=== PATIENT | female | born 1980 | race Caucasian/White ===

== ENCOUNTER 2021-08-20 18:00 | Inpatient (IN) | payer MEDICAID, SELFPAY ==
[2021-08-20] VITALS (10 sets, daily range): BP systolic 103–127; BP diastolic 76–98; PULSE 46–73; RESP 8–16; TEMP 36.3–36.6; O2SAT 91–99; BMI 27.9; BMI 28.2
--- NOTE | 2021-08-20 18:08 | EKG12_ITS ---
Test Reason : UNRSPONSIVE Blood Pressure : / mmHG Vent. Rate : 070 BPM Atrial Rate : 070 BPM P-R Int : 164 ms QRS Dur : 114 ms QT Int : 410 ms P-R-T Axes : 021 074 026 degrees QTc Int : 442 ms Normal sinus rhythm Low voltage QRS Borderline ECG Confirmed by NEDRA MARIE, TANA ([id number]), science editor JOSE LEE ([id number]) on 08/22/2021 8:25:38 AM Referred By: Confirmed By:TANA SNEED MD
--- NOTE | 2021-08-20 18:18 | RAD_ITS ---
STUDY: X-RAY CHEST REASON FOR EXAM: Female, 41 years old. CHEST PAIN Myxedema coma, history of pericardial effusion TECHNIQUE: XR Chest 1 View COMPARISON: None FINDINGS: There is no demonstrated pleural abnormality. There is bilateral infiltrate. Normal size heart. Normal mediastinum and payal. Normal visualized pulmonary arteries. Normal visualized aortic arch and descending thoracic aorta. Normal visualized thoracic spine. Normal visualized ribs, clavicles, and shoulders. There is no demonstrated abnormality of the visualized soft tissue structures of the upper abdomen. RAD/Chest 1 View (Portable) IMPRESSION: There is bilateral infiltrate. Electronically Signed: Matthew Fitzgerald MD at 18:29 EST , Service support ,
--- NOTE | 2021-08-20 18:21 | EX.ED.DYSGE1 ---
HPI History of Present Illness Chief Complaint: Alt LOC Detail of Chief Complaint: Suspected myxedema coma/crisis Informant: EMS Limited: coma Onset/Context/Timing Onset: - (Unknown) Context: Gradual Onset (Suspected since she received a letter that was dated August 12 that her TSH for recent admission to [facility] was 80 and she had a pericardial effusion. She was admitted for constipation and RSV.) Timing: Continuous Current Severity: Severe Maximum Severity: Severe Worsened by: Untreated hypothyroidism Relieved by: Nothing Associated Symptoms Associated Symptoms: Unable to obtain Narrative Narrative: Is a 41-year-old woman who was recently seen at [facility] and had diagnosis of RSV. She was admitted for constipation and fatigue. She received a letter that was dated August 12 for elevated TSH of 80 and pericardial effusion. Presently she is unable to participate in her history or physical examination. Prior similar symptoms: Yes Recent Illness/Hospitalization: Yes PFSH PFSH Medical History unable to obtain unable to obtain Family History unable to obtain unable to obtain Surgical History unable to obtain unable to obtain Social History Smoking Status: Unknown if ever smoked ROS ROS ED Review of Systems ROS Unobtainable: due to encephalopathy EXAM Physical Exam Const Vital Signs: 08/20/21 18:01 08/20/21 19:23 Temperature 97.9 F Temperature Source Temporal Pulse Rate 46 L 71 Respiratory Rate 16 14 Blood Pressure 127/98 H 111/85 H Blood Pressure Mean 107 93 Pulse Ox 97 93 Oxygen Delivery Method Room Air Room Air Positive well nourished, well developed and obese General Appearance ED: well developed and NAD; Negative for cyanotic or diaphoretic Nutritional Appearance: obese HEENT HEENT Narrative: Head is atraumatic normocephalic. Ears normal. Nares patent. Mucosa moist. Eyes PERRL General Eye ED: Negative for pale conjunctiva or scleral icterus Neck no lymphadenopathy, supple and no JVD Chest Wall inspection of chest normal Resp normal respiratory effort and clear to auscultation bilaterally Cardio regular rhythm, S1 normal heart sound, S2 normal heart sound and no murmurs Rate: bradycardia GI normal to inspection, nondistended, normoactive bowel sounds and non-tender Auscultation: hypoactive bowel sounds Palpation: soft Neuro No oriented x3 Neuro Narrative: Patient has delayed relaxation phase of the ankle reflex consistent with hypothyroidism. Sensorium / Orientation: Negative for alert Psych Negative for mental status grossly normal Skin no rashes or lesions noted and no wounds General Skin Exam: Negative for jaundice MDM MDM MDM Narrative Medical decision making narrative: Based on elevated TSH 2 weeks ago and patient's present condition patient has myxedema coma/crisis. She was treated with IV L-thyroxine. Because there is a concern for adrenal insufficiency a cortisol level was obtained and she received 10 mg of Decadron IV push and would not interfere with stim test if indicated. The marine pipefitter helper Dr. Patel Colmenares was made aware of the patient. He agrees with ICU admission. Lab Data Attestation: I reviewed the patient's lab results. Lab results narrative: CBC is remarkable for anemia with an H&H of 9.2 and 29.5.. Coags are unremarkable. Comprehensive metabolic panel is remarkable for slight hyponatremia and hyperchloremia and hypo-Mando C. Nani, (135, 97 and 3.4 respectively). TSH is greater than 100 Cortisol is normal. She will not require repeat doses of Decadron. Hospitalist was paged for admission to ICU Records from [facility] were asked for. They have not been received. Labs: Laboratory Results - last 24 hr 08/20/21 08/20/21 08/20/21 18:05 18:05 18:05 WBC 7.9 RBC 3.63 L Hgb 9.2 L Hct 29.5 L MCV 81.3 MCH 25.3 L MCHC 31.2 L RDW Std Deviation 55.8 H RDW Coeff of Mary Alice 19.2 H Plt Count 277 MPV 9.0 Immature Gran % (Auto) 0.600 Neut % (Auto) 67.9 Lymph % (Auto) 19.1 Emanuel % (Auto) 6.2 Eos % (Auto) 4.9 Baso % (Auto) 1.3 H Absolute Neuts (auto) 5.4 Absolute Lymphs (auto) 1.51 Nucleated RBC % 0 PT 13.2 INR 1.1 APTT 41.6 H Sodium Potassium Chloride Carbon Dioxide Anion Gap BUN Creatinine Estim Creat Clear Calc Est GFR (MDRD) Af Amer Est GFR (MDRD) Non-Af BUN/Creatinine Ratio Glucose Lactic Acid Calcium Total Bilirubin AST ALT Alkaline Phosphatase Total Protein Albumin Globulin Albumin/Globulin Ratio TSH Serum , Qual Cortisol 8.40 08/20/21 08/20/21 08/20/21 18:05 18:05 18:52 WBC RBC Hgb Hct MCV MCH MCHC RDW Std Deviation RDW Coeff of Mary Alice Plt Count MPV Immature Gran % (Auto) Neut % (Auto) Lymph % (Auto) Emanuel % (Auto) Eos % (Auto) Baso % (Auto) Absolute Neuts (auto) Absolute Lymphs (auto) Nucleated RBC % PT INR APTT Sodium 135 L Potassium 3.4 L Chloride 97 L Carbon Dioxide 32.0 Anion Gap 6 BUN 14 Creatinine 0.92 Estim Creat Clear Calc 82.00 Est GFR (MDRD) Af Amer 87 Est GFR (MDRD) Non-Af 72 BUN/Creatinine Ratio 15.3 Glucose 87 Lactic Acid 1.2 Calcium 9.7 Total Bilirubin 0.30 AST 55 H ALT 40 Alkaline Phosphatase 46 Total Protein 8.6 H Albumin 3.8 Globulin 4.8 H Albumin/Globulin Ratio 0.8 L TSH > 100.00 H Serum , Qual NEGATIVE Cortisol Radiography Chest X-Ray - ED: 1 View, Read by ED Physician (Patient heart is enlarged. Cardiac silhouette appears normal. Patient has poor inspiratory volume due to poor respiratory effort. She does not have infiltrates. She has poor inspiratory effort and reason radiologist has interpreted as infiltrate.) and Mediastinum Diagnostic Testing: Clinical Impression(s) from Imaging Studies Chest X-Ray 08/20/21 18:18 IMPRESSION: There is bilateral infiltrate. Electronically Signed: Matthew Fitzgerald MD at 18:29 EST , Service support , EKG Initial EKG: Attestation: I personally reviewed and interpreted this EKG as follows: Interpretation: Sinus Rhythm (EKG reveals a normal sinus rhythm with ventricular rate of 70. NM interval is 164 ms. QRS duration 114 ms. QT duration 4 to 10 ms. [place] is normal. There is low voltage and consistent with large pleural cardial effusion noted on echo) Procedures Other Procedures Procedure(s): Transthoracic ultrasound reveals a large pericardial effusion. There is no evidence of tamponade. There is evidence of good contractility of the right and left ventricle. There is no collapse of the right atrium. Critical Care Time Critical Care Time: Yes Critical care time (excluding procedures): 30-74 minutes (37 minutes), Including time spent: (History, physical, documentation, interpretation laboratory results, initiation of treatment for myxedema coma, bedside transthoracic echo), Discussing w/Consultants, Arranging Admission or Transfer and Performing Direct Patient Care at Bedside Discharge Plan Dx/Rx/DC Orders Clinical Impression: Myxedema coma, Pericardial effusion Disposition Disposition: Acute Care Hospital [facility]
[2021-08-20 18:29] LABS: Absolute Lymphocyte Count 1.51 X10^3/uL (0.83-4.51); Absolute Neutrophil Count 5.4 X10^3/uL (2.0-7.7); Basophil% 1.3 % (0-1); Eosinophil# 0.39 X10^3/uL; Eosinophils% 4.9 % (0-5); Hematocrit 29.5 % (37-47); Hemoglobin 9.2 g/dL (12.0-15.0); Lymphocyte # 1.51 X10^3/ul (0.83-4.51); Lymphocyte % 19.1 % (19-41); Mean Corp Hgb Conc 31.2 g/dL (32-36); Mean Corpuscular Hgb 25.3 pg (27.0-32.0); Mean Corpuscular Volume 81.3 fL (81-99); Monocyte# 0.49 X10^3/uL; Monocyte% 6.2 % (0-10); NRBC Flagged by Analyzer 0 % (0-5); Neutrophil # 5.38 X10^3/uL (2.7-7.7); Neutrophil % 67.9 % (47-70); Platelet Count 277 K/mm3 (150-450); RBC Distribution Width CV 19.2 % (11.6-14.6); RBC Distribution Width SD 55.8 fl (35.1-43.9); Red Blood Count 3.63 M/mm3 (4.2-5.4); White Blood Count 7.9 K/mm3 (4.4-11.0)
[2021-08-20] MEDS: 0.9% Normal Saline 1,000 ML 150 ML IV (18:30)
[2021-08-20 18:37] LABS: International Normalized Ratio 1.1; Prothrombin Time (Protime)PT. 13.2 SECONDS (11.7-14.9)
[2021-08-20 18:38] LABS: Partial Thromboplast Time 41.6 Seconds (24.1-36.2)
[2021-08-20] MEDS: dexAMETHasone 10 MG/ML Vial IV (18:38)
[2021-08-20 18:57] LABS: ALB/GLOB Ratio 0.8 RATIO (0.9-2.4); AST(SGOT) 55 U/L (15-37); Alanine Aminotransfer ALT/SGPT 40 U/L (13-56); Albumin, Serum 3.8 g/dL (3.2-5.0); Alkaline Phosphatase 46 U/L (45-117); Anion Gap 6 (5-15); BUN 14 mg/dL (7-18); BUN/Creat Ratio 15.3 RATIO (10-20); Calcium,Total 9.7 mg/dL (8.5-10.1); Chloride 97 mmol/L (98-107); Creatinine, Serum 0.92 mg/dL (0.55-1.02); EST Glomerular Filtration Rate 72 mL/min (>60); Est Glom Filt Rate - Afr Amer 87 mL/min (>60); Globulin 4.8 g/dL (2.2-4.2); Glucose 87 mg/dL (74-106); Potassium 3.4 mmol/L (3.5-5.1); Protein, Total 8.6 g/dL (6.4-8.2); Sodium Level 135 mmol/L (136-145)
[2021-08-20 18:58] LABS: Thyroid Stim Hormone (TSH) > 100.00 uIU/mL (0.358-3.74)
[2021-08-20 19:14] LABS: Internal QC Validated? YES +Cl - CLEAR BKGD; Pregnancy, Serum, hCG Quali. NEGATIVE Negative
[2021-08-20 19:34] LABS: Lactic Acid 1.2 mmol/L (0.4-1.9)
--- NOTE | 2021-08-20 20:21 | HP.PCM.HOS_ITS ---
HPI - General General Date of Admission: 08/20/21 HPI Narrative DAMIAN FRANKLIN, is a 41 F with unknown history was brought to ER by EMS from home. As per triage note patient has been in and out of consciousness. She was getting treated for constipation, pleural effusion and had recent admission for RSV in [facility]. There was a letter from Doctor Dated August 12, 2021 which showed that her TSH was high 80, found after discharge for which she was called and left voice message but did not reply or seek medical help. As per ED squad, patient was found seated on the toilet and was being held by her friend. She was very lethargic. EMS EKG shows sinus rhythm at 79 bpm, QTC 433 ms. GCS recorded was 12. In ER, EKG shows low voltage QRS complexes at 70 beats per. QTc 442 ms. EMS vitals blood sugar 94, BP 92/57, heart rate 76, respiratory 12/min, pulse ox 95% on 2 L of oxygen [facility] Medical History unable to obtain unable to obtain Home Medications Unobtainable 08/20/21 [History Last Taken Unknown] Allergy/AdvReac Type Severity Reaction Status Date / Time hydromorphone [From Dilaudid] Allergy Upset Verified 08/20/21 22:05 Stomach Family History unable to obtain unable to obtain Surgical History Tubal ligation status Surgical History unable to obtain Social History Smoking Status: Unknown if ever smoked ROS ROS Narrative Twelve system ROS unobtainable as patient has altered mental status, confusion, hardly open eyes. Review of Systems ROS Unobtainable: due to mental condition and due to mental status Vital Signs Vital Signs Vital Signs: 08/20/21 18:01 08/20/21 19:23 Temperature 97.9 F Temperature Source Temporal Pulse Rate 46 L 71 Respiratory Rate 16 14 Blood Pressure 127/98 H 111/85 H Blood Pressure Mean 107 93 Pulse Ox 97 93 Oxygen Delivery Method Room Air Room Air Weight Weight: 183 lb 13.848 oz Body Mass Index (BMI) 27.9 Physical Exam Narrative General: Unconscious, unresponsive HEENT: Atraumatic, PERRLA, EOMI, Normocephalic Oral: No Gingival or Mucosal Lesions/ Ulcerations Neck: No eschar marked for thyroid surgery in the neck supple, No JVD, Negative Carotid Bruits Lungs: Air entry diminished in bilateral lung bases. No crepitation/rhonchi Cardiovascular: Regular rate, Regular Rhythm, Normal S1, Normal S2, No murmurs Abdomen: Bowel Sounds sluggish, Soft, Non Tender, Non-Distended : No renal angle tenderness. No suprapubic tenderness. Extremities: No edema, Capillary Refill Less than 3 Seconds Skin: No rashes, No breakdown Musculoskeletal: No Tenderness to Palpation of Joints or Extremities Neurological: GCS 8, eye-opening to pain, incomprehensible sounds, withdrawal from pain. Psych/Mental Status: Unconscious, Results Lab / Micro Data Result Diagrams: 08/20/21 18:05 08/20/21 18:05 Labs: Laboratory Results - last 24 hr 08/20/21 18:05: Cortisol 8.40 08/20/21 18:05: WBC 7.9, RBC 3.63 L, Hgb 9.2 L, Hct 29.5 L, MCV 81.3, MCH 25.3 L , MCHC 31.2 L, RDW Std Deviation 55.8 H, RDW Coeff of Mary Alice 19.2 H, Plt Count 277, MPV 9.0, Immature Gran % (Auto) 0.600, Neut % (Auto) 67.9, Lymph % (Auto) 19.1, Cottle % (Auto) 6.2, Eos % (Auto) 4.9, Baso % (Auto) 1.3 H, Absolute Neuts (auto) 5.4, Absolute Lymphs (auto) 1.51, Nucleated RBC % 0 08/20/21 18:05: PT 13.2, INR 1.1, APTT 41.6 H 08/20/21 18:05: Sodium 135 L, Potassium 3.4 L, Chloride 97 L, Carbon Dioxide 32.0, Anion Gap 6, BUN 14, Creatinine 0.92, Estim Creat Clear Calc 82.00, Est GFR (MDRD) Af Amer 87, Est GFR (MDRD) Non-Af 72, BUN/Creatinine Ratio 15.3, Glucose 87, Calcium 9.7, Total Bilirubin 0.30, AST 55 H, ALT 40, Alkaline Phosphatase 46, Total Protein 8.6 H, Albumin 3.8, Globulin 4.8 H, Albumin/Globulin Ratio 0.8 L, TSH > 100.00 H 08/20/21 18:05: Serum , Qual NEGATIVE 08/20/21 18:52: Lactic Acid 1.2 Radiology Impression Chest X-Ray 08/20/21 18:18 IMPRESSION: There is bilateral infiltrate. Electronically Signed: Matthew Fitzgerald MD at 18:29 EST , Service support , Assessment & Plan Assessment/Plan (1) Myxedema coma: PLAN: 1. Myxedema coma, etiology unclear probably undiagnosed hypothyroidism for long time: ER physician discussed with time study technician Dr. Colmenares. TSH is more than one hundred. Serum cortisol level 8.4. Patient received 10 mg IV dexamethasone and 300 mcg levothyroxine IV in ED. Patient on IV fluid normal saline. Patient is being admitted in ICU. Repeat TSH, free T4 and free T3 tomorrow a.m. Levothyroxine 100 mcg IV daily along with hydrocortisone 100 mg IV every 8 hourly. Continue IV fluid normal saline. CK ordered. 2D echo ordered for tomorrow a.m. 2. Severe constipation: Chest x-ray shows nonspecific gas shadow in large bowel. Abdominal x-ray ordered for tomorrow a.m. Dulcolax suppository 10 mg daily. 3. Recent hospitalization for RSV, pleural effusion, constipation and fatigue: Details unavailable. We'll try to obtain medical record from [facility]. DVT prophylaxis: Moderate to high risk: Lovenox 40 mg subcu daily. Patient is not awake, alert, unresponsive to discuss about advanced directive. Full code unverified. Laboratory Results 08/20/21 18:05: Cortisol 8.40 08/20/21 18:05: WBC 7.9, RBC 3.63 L, Hgb 9.2 L, Hct 29.5 L, MCV 81.3, MCH 25.3 L , MCHC 31.2 L, RDW Std Deviation 55.8 H, RDW Coeff of Mary Alice 19.2 H, Plt Count 277, MPV 9.0, Immature Gran % (Auto) 0.600, Neut % (Auto) 67.9, Lymph % (Auto) 19.1, Cottle % (Auto) 6.2, Eos % (Auto) 4.9, Baso % (Auto) 1.3 H, Absolute Neuts (auto) 5.4, Absolute Lymphs (auto) 1.51, Nucleated RBC % 0 08/20/21 18:05: PT 13.2, INR 1.1, APTT 41.6 H 08/20/21 18:05: Sodium 135 L, Potassium 3.4 L, Chloride 97 L, Carbon Dioxide 32.0, Anion Gap 6, BUN 14, Creatinine 0.92, Estim Creat Clear Calc 82.00, Est GFR (MDRD) Af Amer 87, Est GFR (MDRD) Non-Af 72, BUN/Creatinine Ratio 15.3, G lucose 87, Calcium 9.7, Total Bilirubin 0.30, AST 55 H, ALT 40, Alkaline Ph osphatase 46, Total Protein 8.6 H, Albumin 3.8, Globulin 4.8 H, Albumin/Globulin Ratio 0.8 L, TSH > 100.00 H 08/20/21 18:05: Serum , Qual NEGATIVE 08/20/21 18:05: Phosphorus 3.4, Magnesium 2.4 08/20/21 18:52: Lactic Acid 1.2 Clinical Impression(s) from Imaging Studies Chest X-Ray 08/20/21 18:18 IMPRESSION: There is bilateral infiltrate. Electronically Signed: Matthew Fitzgerald MD at 18:29 EST , Service support , Charges/Coding Visit Charges Inpatient E&M: 55195 Init Hosp L3
[2021-08-20 20:42] LABS: Magnesium 2.4 mg/dL (1.6-2.6); Phosphorus 3.4 mg/dL (2.5-4.9)
[2021-08-20] MEDS: Hydrocortisone Sod Succinate 100 MG/2 ML Vial IV (23:47)
[2021-08-20] MEDS: Enoxaparin 40 MG/0.4 ML Syringe SC (23:47)
[2021-08-21] VITALS (24 sets, daily range): BP systolic 94–121; BP diastolic 52–87; PULSE 58–90; RESP 9–18; TEMP 36.4–36.7; O2SAT 90–98
[2021-08-21 01:31] LABS: CPK Total, Creatine Kinase 1630 U/L (26-192)
[2021-08-21] MEDS: Potassium Chloride 10mEq/100mL 10 MEQ/100 ML IV.SOLN. 100 MEQ IV BOLUS ×2 (03:27→05:07)
[2021-08-21 03:45] LABS: Absolute Lymphocyte Count 0.54 X10^3/uL (0.83-4.51); Absolute Neutrophil Count 7.2 X10^3/uL (2.0-7.7); Basophil# 0.05 X10^3/uL; Basophil% 0.6 % (0-1); Eosinophil# 0.01 X10^3/uL; Eosinophils% 0.1 % (0-5); Hematocrit 29.2 % (37-47); Hemoglobin 9.2 g/dL (12.0-15.0); Lymphocyte # 0.54 X10^3/ul (0.83-4.51); Lymphocyte % 6.8 % (19-41); Mean Corp Hgb Conc 31.5 g/dL (32-36); Mean Corpuscular Volume 82.5 fL (81-99); Mean Platelet Vol. 9.8 fl (6.2-12.0); Monocyte# 0.08 X10^3/uL; NRBC Flagged by Analyzer 0 % (0-5); Neutrophil # 7.23 X10^3/uL (2.7-7.7); Neutrophil % 90.6 % (47-70); POSITIVE DIFFERENTIAL YES; Platelet Count 254 K/mm3 (150-450); RBC Distribution Width CV 18.8 % (11.6-14.6); RBC Distribution Width SD 55.9 fl (35.1-43.9); Red Blood Count 3.54 M/mm3 (4.2-5.4)
[2021-08-21 03:50] LABS: Differential Indicated SCAN CRITERIA MET
[2021-08-21] MEDS: 0.9% Normal Saline 1,000 ML 150 ML IV (04:01)
[2021-08-21 04:17] LABS: Anion Gap 6 (5-15); BUN 11 mg/dL (7-18); BUN/Creat Ratio 14.6 RATIO (10-20); Chloride 100 mmol/L (98-107); Creatinine, Serum 0.76 mg/dL (0.55-1.02); EST Glomerular Filtration Rate 90 mL/min (>60); Est Glom Filt Rate - Afr Amer 109 mL/min (>60); Estimated Creatinine Clearance 92.11 ml/min; Free T3 < 0.5 pg/mL (2.18-3.98); Glucose 129 mg/dL (74-106); Potassium 3.6 mmol/L (3.5-5.1); Sodium Level 135 mmol/L (136-145); T4 Free Direct 0.58 ng/dL (0.76-1.46)
--- NOTE | 2021-08-21 05:55 | ECHOD_ITS ---
Reason For Study: ABNORMAL EKG Procedure This was a 2D Doppler, Color Flow transthoracic echocardiogram. The study was technically difficult. Exam performed supine due to patient discomfort. Exam performed portable in ICU/CCU. Left Ventricle Normal LV size. Apical false tendon noted. Left ventricular systolic function is normal. The estimated ejection fraction is 60 %. No evidence for diastolic dysfunction. No regional wall motion abnormalities noted. Right Ventricle Normal RV size. Normal systolic function. Atria Normal left atrium. Normal right atrium. No doppler evidence for ASD. Mitral Valve There is no mitral annular calcification. Normal mitral valve. Trivial mitral valve insufficiency. Tricuspid Valve Normal tricuspid valve. Trivial tricuspid valve insufficiency. Unable to estimate RV systolic pressure/pulmonary artery pressure due to technically difficult study. Aortic Valve Trisinus/trileaflet aortic valve. Normal aortic valve. Pulmonic Valve The pulmonic valve is not well visualized. Trivial pulmonic valve insufficiency. Great Vessels Normal sized aortic root. Pericardium/Pleural Moderate pericardial effusion. There are no echocardiographic indications of cardiac tamponade. MMode/2D Measurements & Calculations LVIDd: 4.8 cm IVSd: 0.89 cm Ao root diam: 2.9 cm LVIDs: 2.5 cm LVPWd: 1.1 cm RVDd: 3.5 cm FS: 47.2 % LAV(MOD-bp): 36.6 ml LA A4 area: 14.9 cm2 LA dimension(2D): 3.2 cm LAV(MOD-bp) Indexed: 19.4 ml/m2 LAV(MOD-sp2): 30.0 ml LAV(MOD-sp4): 40.6 ml RA A4 area: 14.0 cm2 Time Measurements MV dec time: 0.24 sec Doppler Measurements & Calculations MV E max sav: 64.1 cm/sec Lat Peak E' Sav: 7.9 cm/sec Med Peak E' Sav: 8.8 cm/sec MV A max sav: 29.5 cm/sec E/E' lat: 8.1 E/E' med: 7.3 MV E/A: 2.2 Ao V2 max: 76.8 cm/sec LV V1 max: 65.3 cm/sec PA V2 max: 64.6 cm/sec Ao max P.4 mmHg LV V1 max P.7 mmHg ECHO/Echo Complete Interpretation Summary The study was technically difficult. Left ventricular systolic function is normal. The estimated ejection fraction is 60 %. Apical false tendon noted. Trivial mitral valve insufficiency. Trivial tricuspid valve insufficiency. Trivial pulmonic valve insufficiency. Moderate pericardial effusion. There are no echocardiographic indications of cardiac tamponade. Unable to estimate RV systolic pressure/pulmonary artery pressure due to techni anastasia difficult study. No evidence for diastolic dysfunction. Ordering Physician: Lon Martinez Referring Physician: DANIEL PCP Performed By: Gricelda Sapp RDCS, RVT
--- NOTE | 2021-08-21 05:55 | RAD_ITS ---
STUDY: X-RAY - ABDOMEN/PELVIS REASON FOR EXAM: Female, 41 years old. Severe constipation TECHNIQUE: AP supine and decubitus views of the abdomen and pelvis. COMPARISON: None. FINDINGS: There is dilatation of the colon due to the presence of gas and fecal material down to the rectum. There is no demonstrated free abdominal air. The visualized liver, spleen and kidneys are grossly normal in size and morphology. Normal soft tissue structures. Normal visualized osseous structures. RAD/Abd Decub and/or Erect(Portabl IMPRESSION: Distention of the colon due to gas and fecal material down to the level of the rectum. Electronically Signed: Juan R Pan MD at 12:53 EST , Service support ,
[2021-08-21] MEDS: Hydrocortisone Sod Succinate 100 MG/2 ML Vial IV ×3 (06:36→20:55)
--- NOTE | 2021-08-21 06:52 | PCM.PN.HOSP ---
Subjective Subjective Patient this a.m. more alert, able to converse as she had presented in myxedema coma and was extremely encephalopathic. Patient able to give some history of discharge from [facility] with prolonged admission secondary to severe RSV with upon arrival to home patient alerted by family of a letter noting significantly elevated thyroid levels encouraging follow-up evaluation. Currently patient appears improved, patient denies fevers, chills, nausea, emesis, abdominal pain, chest pain or dyspnea. She does note significant arthralgias and myalgias ongoing. Objective Data Objective Data Vital Signs: Vital Signs Temp Pulse Resp BP Pulse Ox 97.6 F L 60 11 L 100/79 95 08/21/21 00:00 08/21/21 06:00 08/21/21 06:00 08/21/21 06:00 08/21/21 06:00 Oxygen Delivery Method Room Air Weight: 174 lb 13.225 oz Body Mass Index (BMI) 28.2 Intake & Output: Intake and Output for Last 24 Hours 08/19/21 08/20/21 08/21/21 23:59 23:59 23:59 Intake Total 1000 / 1000 200 / 200 Output Total 625 / 625 Balance 1000 / 625 -425 / -425 Lab / Micro Data Result Diagrams: 08/21/21 03:30 08/21/21 03:30 Labs: Laboratory Results - last 24 hr 08/20/21 18:05: Cortisol 8.40 08/20/21 18:05: WBC 7.9, RBC 3.63 L, Hgb 9.2 L, Hct 29.5 L, MCV 81.3, MCH 25.3 L, MCHC 31.2 L, RDW Std Deviation 55.8 H, RDW Coeff of Mary Alice 19.2 H, Plt Count 277, MPV 9.0, Immature Gran % (Auto) 0.600, Neut % (Auto) 67.9, Lymph % (Auto) 19.1, Pope % (Auto) 6.2, Eos % (Auto) 4.9, Baso % (Auto) 1.3 H, Absolute Neuts (auto) 5.4, Absolute Lymphs (auto) 1.51, Nucleated RBC % 0 08/20/21 18:05: PT 13.2, INR 1.1, APTT 41.6 H 08/20/21 18:05: Sodium 135 L, Potassium 3.4 L, Chloride 97 L, Carbon Dioxide 32.0, Anion Gap 6, BUN 14, Creatinine 0.92, Estim Creat Clear Calc 82.00, Est GFR (MDRD) Af Amer 87, Est GFR (MDRD) Non-Af 72, BUN/Creatinine Ratio 15.3, Glucose 87, Calcium 9.7, Total Bilirubin 0.30, AST 55 H, ALT 40, Alkaline Phosphatase 46, Total Protein 8.6 H, Albumin 3.8, Globulin 4.8 H, Albumin/Globulin Ratio 0.8 L, TSH > 100.00 H 08/20/21 18:05: Serum , Qual NEGATIVE 08/20/21 18:05: Phosphorus 3.4, Magnesium 2.4 08/20/21 18:05: Total Creatine Kinase 1630 H 08/20/21 18:52: Lactic Acid 1.2 08/21/21 03:30: WBC 8.0, RBC 3.54 L, Hgb 9.2 L, Hct 29.2 L, MCV 82.5, MCH 26.0 L, MCHC 31.5 L, RDW Std Deviation 55.9 H, RDW Coeff of Mary Alice 18.8 H, Plt Count 254, MPV 9.8, Immature Gran % (Auto) 0.900, Neut % (Auto) 90.6 H, Lymph % (Auto) 6.8 L, Pope % (Auto) 1.0, Eos % (Auto) 0.1, Baso % (Auto) 0.6, Absolute Neuts (auto) 7.2, Absolute Lymphs (auto) 0.54 L, Nucleated RBC % 0 08/21/21 03:30: Sodium 135 L, Potassium 3.6, Chloride 100, Carbon Dioxide 29.0, Anion Gap 6, BUN 11, Creatinine 0.76, Estim Creat Clear Calc 92.11, Est GFR (MDRD) Af Amer 109, Est GFR (MDRD) Non-Af 90, BUN/Creatinine Ratio 14.6, Glucose 129 H, Calcium 9.0, TSH 70.80 H, Free T4 0.58 L, Free T3 pg/dL < 0.5 L Radiography Diagnostic Testing: Radiology Impression Chest X-Ray 08/20/21 18:18 IMPRESSION: There is bilateral infiltrate. Electronically Signed: Matthew Fitzgerald MD at 18:29 EST , Service support , Physical Exam Narrative Physical Examination: General: Awake, alert, oriented to self, place and several recent events, improved mental status, cooperative, following requested commands, laying in the ICU bed, no acute distress. Skin: Normal color, normal turgor, no icterus, no cyanosis. HEENT: AT/NC, EOMI, PERRLA, mildly dry MM. Lungs: Diminished, greater bases, moderate effort, no rales, ronchi or wheezing. Heart: Regular rate and rhythm; no gallop, rub audible. Abdomen: Soft, NTTP, ND, hyperactive bowel sounds. Extremities: No cyanosis, clubbing, or significantly noted edema. Neurological: Patient awake, alert, oriented as noted, cognitive function improving, likely nearing baseline intact; pupils equally reactive to light and accommodation, cranial nerves II-XII grossly normal, moving all 4 extremities, no focal deficits, strength moderately global decrease secondary to acute presentation. Psychiatric: Affect appears fatigued otherwise improved, no acute evidence of depressive or anxiety feelings. Assessment & Plan Assessment/Plan (1) Myxedema coma: (2) Pericardial effusion: PLAN: The patient is a 41 y/o F w/ unclear past medical history who presented to the [facility] on 08/20/21 with history per EMS of recent discharge from [facility] following admission for complications with RSV with 08/12/2021 letter to her which arrived with her family recommending follow-up immediately secondary to elevated TSH of 80 found following discharge however patient per report did not follow-up with onset significant lethargy, found by a friend seated on the toilet prompting ED evaluation. #1. Myxedema coma secondary to likely undiagnosed hypothyroidism: Patient admitted to the ICU initially, significantly improved overnight with ongoing IV hydrocortisone, administered IV Decadron load per ED prior to transition, ongoing IV levothyroxine 100 mcg daily with load of 300 mg levothyroxine in the ED, continue judicious fluids, improving repeat TSH, free T4 and T3 with 08/21/21 TSH 70.8, free T4 0.58, free T3 less than 0.5, will continue to order as well as CK trending which is elevated but trending downward, will additionally obtain lipid panel as would expect changes with this additionally, discussed case with endocrinology Dr. Swanson who will evaluate patient 08/22/2021 early a.m. Patient of note is likely early in the manifestation with weakness, fatigue, arthralgias, myalgias with no evidence of any hypothermia or hypotension as well as normal sodium level and glucose levels. We will hold on any specific autoimmune labs given endocrinology will evaluate the patient. #2. Incidental moderate pericardial effusion: 08/21/2021 echocardiogram with EF 60%, LV systolic function normal, trivial MVI, trivial TVI, trivial PVI, moderate pericardial effusion, no evidence of any tamponade, no evidence for diastolic dysfunction. #3. Severe constipation: KUB with nonspecific bowel gas pattern, administer Dulcolax suppository given n.p.o. status, given improvement will initiate aggressive bowel regimen with MiraLAX twice daily until improves and de-escalation once appropriate. #4. Recent RSV viral bronchitis: Records requested from [facility] as patient had obviously a prolonged admission of some sort especially given that they obtain TSH while she was there. Will await these records but appears improved from a respiratory standpoint. #5. DVT prophylaxis: SCDs, Lovenox. Charges/Coding Visit Charges Inpatient E&M: 05347 Subs Hosp L3
--- NOTE | 2021-08-21 07:15 | EX.PCM.CONCC ---
Assessment & Plan Assessment/Plan (1) Myxedema coma: PLAN: RECOMMENDATIONS: 1. Continue IV levothyroxine. 2. Obtain endocrinology consultation to assist with medical management. 3. Continue appropriate DVT prophylaxis. 4. Aggressive bowel regimen per hospitalist. IMPRESSIONS: 1. Myxedema coma The patient presented to the hospital with chronic constipation and fatigue and was found to have a TSH greater than 100. Free T4 and T3 levels were accordingly low. The patient was subsequently placed on IV levothyroxine. Cortisol level was negative. The patient's mentation is appropriate this morning. I would consider involving endocrinology in the patient's care to obtain recommendations regarding levothyroxine dosing. The patient will need to establish care with a PCP and will need close outpatient follow-up. 2. Pericardial effusion Incidentally noted on echo without any evidence of tamponade and preserved ejection fraction. Continue to monitor clinically. This note was generated with [employer] dictation software. It may contain incorrect words, spelling, and punctuation that were not noted in checking the note before signing. HPI Consult Data Date of Consult: 08/22/21 HPI Narrative Reason for Consultation: Myxedema coma HPI Narrative: The patient is a 41-year-old female, with a history as outlined below, who presented to the emergency department on August 20 via EMS with altered mentation. The patient was recently admitted at [facility] with RSV. Shortly after being discharged home she was contacted by the hospital and informed that her TSH was significantly elevated. The patient does report chronic issues related to fatigue and constipation. She has never been identified in the past is having any thyroid related medical issues. Nevertheless, she does report that multiple family members have hypothyroidism. On presentation to the emergency department, the patient was noted to be afebrile and hemodynamically stable. She was maintaining appropriate oxygen saturations on room air. Initial laboratory evaluation revealed no evidence of a leukocytosis. Chemistry profile was notable for a sodium of 135, potassium of 3.4 and chloride of 97. TSH was elevated to greater than 100. Chest x-ray demonstrated an elevated right hemidiaphragm with tracheal deviation to the right. The patient was noted to be encephalopathic in the emergency department. She was treated with IV thyroxine. The patient was subsequently admitted to the medical intensive care unit for further management. Overnight, the patient has remained clinically stable. She is alert and interactive this morning. [facility] Medical History unable to obtain Home Medications Unobtainable 08/20/21 [History Last Taken Unknown] Allergy/AdvReac Type Severity Reaction Status Date / Time hydromorphone [From Dilaudid] Allergy Upset Verified 08/20/21 22:05 Stomach Family History unable to obtain Surgical History Tubal ligation status Surgical History unable to obtain Social History Smoking Status: Unknown if ever smoked ROS Constitutional Constitutional: Reports fatigue; Denies body ache(s) or headache(s) Eyes Eyes: Denies blurry vision or change in vision ENT HEENT: Denies dizziness, headache(s), hoarseness or nasal congestion Cardiovascular Cardiovascular: Denies chest pain or dyspnea Respiratory/Chest Respiratory/Chest: Denies cough or dyspnea Gastrointestinal Gastrointestinal: Denies abdominal pain, nausea or vomiting Genitourinary Genitourinary: Denies difficulty urinating Musculoskeletal Musculoskeletal: Denies arthralgias Integumentary Integumentary: Denies lesions, rash or skin ulcer Neurologic Neurologic: Denies abnormal gait Psychiatric Psychiatric: Denies anxiety or depression Endocrine Endocrinology: Reports fatigue Hematologic/Lymphatic Hematologic/Lymphatic: Denies easy bleeding or easy bruising Physical Exam Const alert and no apparent distress General Appearance: cooperative HEENT normocephalic and head/scalp atraumatic Eyes PERRL and EOMs intact bilaterally Neck supple General: trachea midline Chest inspection of chest normal Resp normal respiratory effort Cardio S1 normal heart sound and S2 normal heart sound Rate: bradycardia GI normal to inspection, nondistended, normoactive bowel sounds Extremity no clubbing, cyanosis or edema Skin no rashes or lesions noted Neuro moves all extremities and no focal motor deficits Psych Mood & Affect: flat affect Lab / Micro Data Result Diagrams: 08/21/21 03:30 08/22/21 04:40 Labs: Laboratory Results - last 24 hr 08/20/21 18:05: Cortisol 8.40 08/20/21 18:05: WBC 7.9, RBC 3.63 L, Hgb 9.2 L, Hct 29.5 L, MCV 81.3, MCH 25.3 L, MCHC 31.2 L, RDW Std Deviation 55.8 H, RDW Coeff of Mary Alice 19.2 H, Plt Count 277, MPV 9.0, Immature Gran % (Auto) 0.600, Neut % (Auto) 67.9, Lymph % (Auto) 19.1, [place] % (Auto) 6.2, Eos % (Auto) 4.9, Baso % (Auto) 1.3 H, Absolute Neuts (auto) 5.4, Absolute Lymphs (auto) 1.51, Nucleated RBC % 0 08/20/21 18:05: PT 13.2, INR 1.1, APTT 41.6 H 08/20/21 18:05: Sodium 135 L, Potassium 3.4 L, Chloride 97 L, Carbon Dioxide 32.0, Anion Gap 6, BUN 14, Creatinine 0.92, Estim Creat Clear Calc 82.00, Est GFR (MDRD) Af Amer 87, Est GFR (MDRD) Non-Af 72, BUN/Creatinine Ratio 15.3, Glucose 87, Calcium 9.7, Total Bilirubin 0.30, AST 55 H, ALT 40, Alkaline Phosphatase 46, Total Protein 8.6 H, Albumin 3.8, Globulin 4.8 H, Albumin/Globulin Ratio 0.8 L, TSH > 100.00 H 08/20/21 18:05: Serum , Qual NEGATIVE 08/20/21 18:05: Phosphorus 3.4, Magnesium 2.4 08/20/21 18:05: Total Creatine Kinase 1630 H 08/20/21 18:52: Lactic Acid 1.2 08/21/21 03:30: WBC 8.0, RBC 3.54 L, Hgb 9.2 L, Hct 29.2 L, MCV 82.5, MCH 26.0 L, MCHC 31.5 L, RDW Std Deviation 55.9 H, RDW Coeff of Mary Alice 18.8 H, Plt Count 254, MPV 9.8, Immature Gran % (Auto) 0.900, Neut % (Auto) 90.6 H, Lymph % (Auto) 6.8 L, Winona % (Auto) 1.0, Eos % (Auto) 0.1, Baso % (Auto) 0.6, Absolute Neuts (auto) 7.2, Absolute Lymphs (auto) 0.54 L, Nucleated RBC % 0 08/21/21 03:30: Sodium 135 L, Potassium 3.6, Chloride 100, Carbon Dioxide 29.0, Anion Gap 6, BUN 11, Creatinine 0.76, Estim Creat Clear Calc 92.11, Est GFR (MDRD) Af Amer 109, Est GFR (MDRD) Non-Af 90, BUN/Creatinine Ratio 14.6, Glucose 129 H, Calcium 9.0, TSH 70.80 H, Free T4 0.58 L, Free T3 pg/dL < 0.5 L Radiology Impression Chest X-Ray 08/20/21 18:18 IMPRESSION: There is bilateral infiltrate. Electronically Signed: Matthew Fitzgerald MD at 18:29 EST , Service support , Charges/Coding Visit Charges Inpatient E&M: 71185 Init Hosp L3
--- NOTE | 2021-08-21 11:15 | CASEMGMT ---
KEYSHAWN CM Face to Face with patient for initial transition planning/care coordination assessment. RN CM introduced self and role at [facility]. Patient lying in bed, alert and oriented, mother at bedside. Patient willing to participate in assessment and is able to answer all questions appropriately. Care providers, pharmacy, and demographics verified. Patient wishes to discharge home, denies need for home health at this time. Patient states she has no further needs or concerns at this time. CM to follow for discharge planning needs that may arise. PCP: No PCP, [facility]. Specialists: none Preferred Pharmacy: [facility] retail at discharge. Insurance: none, patient completed [employer] application at [employer] couple weeks ago. Prescription Benefit: none Living Will/HPOA: none LNOK: parents, children Living Arrangements: Patient lives with parents and 3 teenage children in a 2 story home. Patient states she is independent and able to ambulate stairs. Transportation: self, mother DME/HHC: Patient denies DME or previous HHC. SW updated regarding pending FERN application and request for prescription assistance. Disposition Plan: Patient to discharge home with family support and follow-up plans in place. Anusha HICKS, RN, CM
[2021-08-21] MEDS: Enoxaparin 40 MG/0.4 ML Syringe SC ×2 (11:54→20:55)
[2021-08-21] MEDS: LEVOTHYROXINE SODIUM 200 MCG VIAL 100 MCG IV (11:54)
--- NOTE | 2021-08-21 12:56 | CASEMGMT ---
Social Work Pt presenting with no health insurance. LANDY met with pt and mother and introduced self and role of SW. Pt stating she has completed a Medicaid application. Phone call to S and confirms application is pending. SW encouraged pt to call [facility] and to turn in needed documents as soon as possible. Pt stating she will call [facility] today. Pt also states she had an appointment with [facility] today to establish services. Pt confirms she will reset appointment after hospitalization. LANDY provided resources on [employer], [employer], [employer] and prescription assistance programs. SW will remain available should other needs arise. DEBBIE Leiva
[2021-08-21] MEDS: Acetaminophen 325 MG Tablet 650 MG PO (13:27)
--- NOTE | 2021-08-21 15:48 | CHAPLAIN ---
Type of Pastoral Visit _x__ Initial Visit ___ Follow-up Visit ___ On-call Visit ___ General Patient Visit ___ Spiritual Assessment ___ Family Conference ___ Bereavement ___ Rapid Response ___ Code Blue ___ Other (describe below) Pastoral Care Referral From _x__ Patient ___ Family ___ Nurse ___ Physician ___ Insurance Claims Clerk ___ Jewelry Polisher ___ Other (describe below) Sacrament/Intervention _x__ Active listening ___ Anointing ___ Islam ___ Bereavement ___ Communion _x__ Rika exploration ___ ___ Life review _x__ Prayer ___ Reconciliation ___ Sacrament of Sick _x__ Supportive presence ___ Wedding ___ Other (describe below) Pastoral Comments
[2021-08-21] MEDS: Polyethylene Glycol 3350 17 GM PACKET PO (20:59)
[2021-08-22] VITALS (11 sets, daily range): BP systolic 92–128; BP diastolic 54–84; PULSE 63–91; RESP 12–17; TEMP 36.6–37; O2SAT 94–98
[2021-08-22] MEDS: Acetaminophen 325 MG Tablet 650 MG PO (04:49)
[2021-08-22] MEDS: Hydrocortisone Sod Succinate 100 MG/2 ML Vial IV (04:49)
[2021-08-22 05:29] LABS: ALB/GLOB Ratio 0.7 RATIO (0.9-2.4); AST(SGOT) 33 U/L (15-37); Alanine Aminotransfer ALT/SGPT 33 U/L (13-56); Albumin, Serum 3.1 g/dL (3.2-5.0); Alkaline Phosphatase 39 U/L (45-117); Anion Gap 6 (5-15); BUN 15 mg/dL (7-18); BUN/Creat Ratio 16.8 RATIO (10-20); Calcium,Total 8.7 mg/dL (8.5-10.1); Chloride 101 mmol/L (98-107); EST Glomerular Filtration Rate 74 mL/min (>60); Est Glom Filt Rate - Afr Amer 90 mL/min (>60); Estimated Creatinine Clearance 77.79 ml/min; Free T3 < 0.5 pg/mL (2.18-3.98); Globulin 4.4 g/dL (2.2-4.2); Glucose 112 mg/dL (74-106); Potassium 3.8 mmol/L (3.5-5.1); Protein, Total 7.5 g/dL (6.4-8.2); Sodium Level 137 mmol/L (136-145); T4 Free Direct 0.56 ng/dL (0.76-1.46)
--- NOTE | 2021-08-22 06:22 | PN.HOSP_ITS ---
Subjective Subjective Patient with no acute events overnight per self and per nursing report. Patient is up, eating breakfast and much more alert than even day prior. Discussed current plan of care including recent evaluation by all source analyst, Dr. Swanson. Patient is very eager to improve and amenable to continued inpatient treatment with IV levothyroxine until T3 level 0.06 with at that point transition to 100 mcg daily. Patient transitioned off of IV steroids to oral steroids today per discussion with Dr. Swanson. Patient understands that she will have follow-up with both endocrinology and her primary care physician and is amenable. Patient denies fevers, chills, nausea, emesis, abdominal pain, chest pain or dyspnea. Objective Data Objective Data Vital Signs: Vital Signs Temp Pulse Resp BP Pulse Ox 98.1 F 67 17 117/84 H 94 08/22/21 04:00 08/22/21 04:00 08/22/21 04:00 08/22/21 04:00 08/22/21 04:00 Oxygen Delivery Method Room Air Weight: 180 lb 0.84 oz Body Mass Index (BMI) 28.2 Intake & Output: Intake and Output for Last 24 Hours 08/20/21 08/21/21 08/22/21 23:59 23:59 23:59 Intake Total 1000 / 1000 1800 / 1806 6 / 6 Output Total 1675 / 1675 175 / 175 Balance 1000 / 625 125 / 131 -169 / -169 Lab / Micro Data Result Diagrams: 08/22/21 04:40 08/22/21 04:40 Labs: Laboratory Results - last 24 hr 08/22/21 04:40: Sodium 137, Potassium 3.8, Chloride 101, Carbon Dioxide 30.0, Anion Gap 6, BUN 15, Creatinine 0.90, Estim Creat Clear Calc 77.79, Est GFR (MDRD) Af Amer 90, Est GFR (MDRD) Non-Af 74, BUN/Creatinine Ratio 16.8, Glucose 112 H, Calcium 8.7, Total Bilirubin 0.20, AST 33, ALT 33, Alkaline Phosphatase 39 L, Total Protein 7.5, Albumin 3.1 L, Globulin 4.4 H, Albumin/Globulin Ratio 0.7 L, TSH 66.40 H, Free T4 0.56 L, Free T3 pg/dL < 0.5 L Radiography Diagnostic Testing: Radiology Impression Abdomen X-Ray 08/21/21 05:55 IMPRESSION: Distention of the colon due to gas and fecal material down to the level of the rectum. Electronically Signed: Juan R Pan MD at 12:53 EST , Service support , Echocardiogram 08/21/21 05:55 Interpretation Summary The study was technically difficult. Left ventricular systolic function is normal. The estimated ejection fraction is 60 %. Apical false tendon noted. Trivial mitral valve insufficiency. Trivial tricuspid valve insufficiency. Trivial pulmonic valve insufficiency. Moderate pericardial effusion. There are no echocardiographic indications of cardiac tamponade. Unable to estimate RV systolic pressure/pulmonary artery pressure due to technically difficult study. No evidence for diastolic dysfunction. Ordering Physician: Lon Martinez Referring Physician: DANIEL PCP Performed By: Gricelda Sapp RDCS, RVT Physical Exam Narrative Physical Examination: General: Awake, alert, oriented times greater than 3, seated upright in the ICU bed, eating breakfast, no acute distress. Skin: Normal color, normal turgor, no icterus, no cyanosis. HEENT: AT/NC, EOMI, PERRLA, improved MMM. Lungs: Diminished, greater bases, moderate effort, no rales, ronchi or wheezing. Heart: Regular rate and rhythm; no gallop, rub audible. Abdomen: Soft, NTTP, ND, normalized bowel sounds. Extremities: No cyanosis, clubbing, or significantly noted edema. Neurological: Patient awake, alert, oriented as noted, cognitive function improving, likely nearing baseline intact; pupils equally reactive to light and accommodation, cranial nerves II-XII grossly normal, moving all 4 extremities, no focal deficits, strength improving, mildly to moderately global decrease secondary to acute presentation. Psychiatric: Affect appears normalized, more interactive, no acute evidence of depressive or anxiety feelings. Assessment & Plan Assessment/Plan (1) Myxedema coma: (2) Pericardial effusion: PLAN: The patient is a 41 y/o F w/ unclear past medical history who presented to the [facility] on 08/20/21 with history per EMS of recent discharge from [facility] following admission for complications with RSV with 08/12/2021 letter to her which arrived with her family recommending follow-up immediately secondary to elevated TSH of 80 found following discharge however patient per report did not follow-up with onset significant lethargy, found by a friend seated on the toilet prompting ED evaluation. #1. 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 FLP obtained with TG 62, total cholesterol 240, LDL 184, VLDL 12, HDL 44. 08/22/2021 evaluation by all source analyst, Dr. Swanson with transition off of IV hydrocortisone to Cortef 20 mg p.o. every morning and 10 mg p.o. q. 1700 in addition to continued IV levothyroxine until T3 less than 0.5 with transition to 100 mcg daily at that point. Discussed early follow-up with endocrinology who would like to see the patient on 09/16/2021 at 4:30 PM. #2. Incidental moderate pericardial effusion: 08/21/2021 echocardiogram with EF 60%, LV systolic function normal, trivial MVI, trivial TVI, trivial PVI, moderate pericardial effusion, no evidence of any tamponade, no evidence for diastolic dysfunction. #3. Severe constipation: KUB with nonspecific bowel gas pattern, administer Dulcolax suppository given n.p.o. status, given improvement will initiate aggressive bowel regimen with MiraLAX twice daily until improves and de-escalation once appropriate. #4. Recent RSV viral bronchitis: Records requested from [facility] as patient had obviously a prolonged admission of some sort especially given that they obtained TSH while she was there; however, from discussions with patient that his lab resulted following her discharge and she received a letter in the mail that they were unable to reach her and encouraged her to seek evaluation given the level. Records requested. #5. DVT prophylaxis: SCDs, Lovenox. Charges/Coding Visit Charges Inpatient E&M: 05795 Subs Hosp L2
--- NOTE | 2021-08-22 06:32 | PCM.PN.INT ---
Assessment & Plan Assessment/Plan (1) Myxedema coma: PLAN: RECOMMENDATIONS: 1. Continue IV levothyroxine. 2. Await endocrinology recommendations. 3. Continue appropriate DVT prophylaxis. 4. Aggressive bowel regimen per hospitalist. 5. Will sign off from a critical care perspective. Please call with any additional questions. IMPRESSIONS: 1. Myxedema coma The patient presented to the hospital with chronic constipation and fatigue and was found to have a TSH greater than 100. Free T4 and T3 levels were accordingly low. The patient was subsequently placed on IV levothyroxine. Cortisol level was negative. The patient's mentation is appropriate. I would consider involving endocrinology in the patient's care to obtain recommendations regarding levothyroxine dosing. The patient will need to establish care with a PCP and will need close outpatient follow-up. 2. Pericardial effusion Incidentally noted on echo without any evidence of tamponade and preserved ejection fraction. Continue to monitor clinically. This note was generated with [employer] dictation software. It may contain incorrect words, spelling, and punctuation that were not noted in checking the note before signing. Subjective Subjective The patient was seen and examined at the bedside this morning. Events from the last 24 hours have been reviewed. The patient is currently afebrile, hemodynamically stable and maintaining appropriate oxygen saturations on room air. No overnight issues were identified by the nursing staff. The patient remains alert and oriented. TSH this morning was noted to be 66. Objective Data Objective Data The patient's most recent lab work, culture data and imaging studies have all been personally reviewed. Vital Signs: Vital Signs Temp Pulse Resp BP Pulse Ox 98.1 F 67 17 117/84 H 94 08/22/21 04:00 08/22/21 04:00 08/22/21 04:00 08/22/21 04:00 08/22/21 04:00 Oxygen Delivery Method Room Air Weight: 81.67 kg Body Mass Index (BMI) 28.2 Intake & Output: Intake and Output for Last 24 Hours 08/20/21 08/21/21 08/22/21 23:59 23:59 23:59 Intake Total 1000 / 1000 1800 / 1806 6 / 6 Output Total 1675 / 1675 175 / 175 Balance 1000 / 625 125 / 131 -169 / -169 Lab / Micro Data Attestation: I reviewed the patient's lab results. Result Diagrams: 08/21/21 03:30 08/22/21 04:40 Labs: Laboratory Results - last 24 hr 08/22/21 04:40: Sodium 137, Potassium 3.8, Chloride 101, Carbon Dioxide 30.0, Anion Gap 6, BUN 15, Creatinine 0.90, Estim Creat Clear Calc 77.79, Est GFR (MDRD) Af Amer 90, Est GFR (MDRD) Non-Af 74, BUN/Creatinine Ratio 16.8, Glucose 112 H, Calcium 8.7, Total Bilirubin 0.20, AST 33, ALT 33, Alkaline Phosphatase 39 L, Total Protein 7.5, Albumin 3.1 L, Globulin 4.4 H, Albumin/Globulin Ratio 0.7 L, TSH 66.40 H, Free T4 0.56 L, Free T3 pg/dL < 0.5 L Radiography Diagnostic Testing: Radiology Impression Abdomen X-Ray 08/21/21 05:55 IMPRESSION: Distention of the colon due to gas and fecal material down to the level of the rectum. Electronically Signed: Juan R Pan MD at 12:53 EST , Service support , Echocardiogram 08/21/21 05:55 Interpretation Summary The study was technically difficult. Left ventricular systolic function is normal. The estimated ejection fraction is 60 %. Apical false tendon noted. Trivial mitral valve insufficiency. Trivial tricuspid valve insufficiency. Trivial pulmonic valve insufficiency. Moderate pericardial effusion. There are no echocardiographic indications of cardiac tamponade. Unable to estimate RV systolic pressure/pulmonary artery pressure due to technically difficult study. No evidence for diastolic dysfunction. Ordering Physician: Lon Martinez Referring Physician: NO PCP Performed By: Gricelda Sapp, VIVIANA, RVT Physical Exam Const alert and no apparent distress General Appearance: cooperative HEENT normocephalic and head/scalp atraumatic Eyes PERRL and EOMs intact bilaterally Neck supple General: trachea midline Chest inspection of chest normal Resp normal respiratory effort Cardio regular rate, regular rhythm, S1 normal heart sound and S2 normal heart sound GI normal to inspection, nondistended, normoactive bowel sounds Extremity no clubbing, cyanosis or edema Skin no rashes or lesions noted Neuro moves all extremities and no focal motor deficits Psych cooperative Charges/Coding Visit Charges Inpatient E&M: 07485 Subs Hosp L2
--- NOTE | 2021-08-22 07:21 | PCM.CONS.GEN ---
Assessment & Plan Assessment/Plan (1) Myxedema coma: PLAN: 1. Continue levothyroxine 100 mcg IV for now. She is able to take it orally, however, her gut will be boggy and she will have decreased absorption. Once Free T3 is measurable, switch to PO. 100 mcg is the correct oral dose based on her weight. 2. Recheck CPK, she is complaining of worsening myalgia 3. There is no evidence on exam or laboratory of adrenal insufficiency. Reduce IV hydrocortisone to 20 mg PO qam and 10 mg PO in the afternoon and wean further from there. 4. I will see her again as an outpatient for close follow up after she is discharged. I have spent [62] minutes today reviewing labs, records and history. Time includes coordinating care, interpretation of tests, discussion with patient's other health care providers via telephone. This also includes time I spent with the patient for exam, treatment plan and education as well as documenting clinical information. HPI Consult Data Date of Consult: 08/22/21 HPI Narrative HPI Narrative: DAMIAN FRANKLIN, is a 41 F who presented to [facility] 2 days ago with lethargy and change of mental status. She had been admitted to the hospital in [place] and was diagnosed with RSV. After she was discharged she was called with the information that her TSH was elevated. She was found by her mother in the bathroom with decreased level of consciousness. The patient reports that she started to feel differently in 2017. Her energy level was decreased and she had cold intolerance. The symptoms worsened within the past one year. During that time she reports that her skin has become thickened and dry. Her short term memory has decreased. She dropped out of high school during her senior year and states she has never been good with book stuff, but her concentration has worsened. She works in a gas station and states that she has been capable of doing the work. Today, she states that she has a headache and I don't feel good. She has no recall of how she came to [facility]. She has 4 children ages 14-20. Her oldest child has Grave's disease and she states her youngest son has had a thyroid problem recently. [facility] Medical History unable to obtain Home Medications Unobtainable 08/20/21 [History Last Taken Unknown] Allergy/AdvReac Type Severity Reaction Status Date / Time hydromorphone [From Dilaudid] Allergy Upset Verified 08/20/21 22:05 Stomach Family History (Updated 08/22/21 @ 07:[address] Gabino Swanson MD) Other Thyroid disorder Family History unable to obtain Surgical History Tubal ligation status Surgical History unable to obtain Social History Smoking Status: Unknown if ever smoked ROS Constitutional Constitutional: Reports fatigue, malaise, weakness and weight gain Eyes Eyes: Denies blurry vision, double vision or eye pain ENT HEENT: Reports headache(s); Denies abnormal hearing, dysphagia, hearing loss, loss taste/smell, nasal congestion, sinus pain or sore throat Cardiovascular Cardiovascular: Denies chest pain, edema, orthopnea, palpitations or syncope Respiratory/Chest Respiratory/Chest: Denies cough or shortness of breath at rest Gastrointestinal Gastrointestinal: Reports constipation Genitourinary Genitourinary: Denies dysuria or urinary frequency Musculoskeletal Musculoskeletal: Reports extremity pain and myalgias; Denies back pain Integumentary Integumentary: Reports dry skin Endocrine Endocrinology: Reports cold intolerance Hematologic/Lymphatic Hematologic/Lymphatic: Reports anemia Physical Exam Const alert and oriented x3 General Appearance: cooperative and well developed HEENT normocephalic, head/scalp atraumatic and moist oral mucous membranes Neck no lymphadenopathy Neck Narrative: thyroid is palpable, left lobe greater than right, no nodules palpable Resp normal respiratory effort Effort and Inspection: Negative for respiratory distress Cardio regular rate and regular rhythm GI soft to palpation and non-tender Extremity no calf tenderness General Extremity: edema Skin Skin Narrative: skin is thickened over her shins General Skin Exam: dry skin Neuro Neuro Narrative: DTR show fairly normal upstroke, however there is a severe delay in recovery Her speech sounds as if her tongue is too large for her mouth and diction is decreased Psych affect normal Lab / Micro Data Result Diagrams: 08/21/21 03:30 08/22/21 04:40 Labs: Laboratory Results - last 24 hr 08/22/21 04:40: Sodium 137, Potassium 3.8, Chloride 101, Carbon Dioxide 30.0, Anion Gap 6, BUN 15, Creatinine 0.90, Estim Creat Clear Calc 77.79, Est GFR (MDRD) Af Amer 90, Est GFR (MDRD) Non-Af 74, BUN/Creatinine Ratio 16.8, Glucose 112 H, Calcium 8.7, Total Bilirubin 0.20, AST 33, ALT 33, Alkaline Phosphatase 39 L, Total Protein 7.5, Albumin 3.1 L, Globulin 4.4 H, Albumin/Globulin Ratio 0.7 L, TSH 66.40 H, Free T4 0.56 L, Free T3 pg/dL < 0.5 L Radiology Impression Abdomen X-Ray 08/21/21 05:55 IMPRESSION: Distention of the colon due to gas and fecal material down to the level of the rectum. Electronically Signed: Juan R Pan MD at 12:53 EST , Service support , Echocardiogram 08/21/21 05:55 Interpretation Summary The study was technically difficult. Left ventricular systolic function is normal. The estimated ejection fraction is 60 %. Apical false tendon noted. Trivial mitral valve insufficiency. Trivial tricuspid valve insufficiency. Trivial pulmonic valve insufficiency. Moderate pericardial effusion. There are no echocardiographic indications of cardiac tamponade. Unable to estimate RV systolic pressure/pulmonary artery pressure due to technically difficult study. No evidence for diastolic dysfunction. Ordering Physician: Lon Martinez Referring Physician: NO PCP Performed By: Gricelda Sapp, RDCS, RVT
[2021-08-22] MEDS: Polyethylene Glycol 3350 17 GM PACKET PO (10:19)
--- NOTE | 2021-08-22 10:25 | PCS.PANDOC ---
PANDEMIC DOCUMENTATION INITIATED: Date: 05/06/2021 Time: 190
[2021-08-22 10:37] LABS: CPK Total, Creatine Kinase 600 U/L (26-192); Cholesterol 240 mg/dL (200); High Density Lipoprotein 44 mg/dL; Triglycerides 62 mg/dL; Very Low Density Lipoprotein 12 mg/dL (5-40)
[2021-08-22] MEDS: Hydrocortisone 10 MG Tablet 20 MG PO (10:42)
[2021-08-22 15:26] LABS: Absolute Lymphocyte Count 0.84 X10^3/uL (0.83-4.51); Absolute Neutrophil Count 11.5 X10^3/uL (2.0-7.7); Basophil# 0.01 X10^3/uL; Basophil% 0.1 % (0-1); Eosinophil# 0.01 X10^3/uL; Eosinophils% 0.1 % (0-5); Hematocrit 27.6 % (37-47); Hemoglobin 8.4 g/dL (12.0-15.0); Lymphocyte # 0.84 X10^3/ul (0.83-4.51); Lymphocyte % 6.6 % (19-41); Mean Corp Hgb Conc 30.4 g/dL (32-36); Mean Corpuscular Hgb 25.4 pg (27.0-32.0); Mean Corpuscular Volume 83.4 fL (81-99); Mean Platelet Vol. 11.6 fl (6.2-12.0); Monocyte# 0.28 X10^3/uL; Monocyte% 2.2 % (0-10); NRBC Flagged by Analyzer 0 % (0-5); Neutrophil # 11.54 X10^3/uL (2.7-7.7); Neutrophil % 90.1 % (47-70); Platelet Count 145 K/mm3 (150-450); RBC Distribution Width CV 19.5 % (11.6-14.6); RBC Distribution Width SD 58.4 fl (35.1-43.9); Red Blood Count 3.31 M/mm3 (4.2-5.4); White Blood Count 12.8 K/mm3 (4.4-11.0)
[2021-08-22] MEDS: LEVOTHYROXINE SODIUM 100 MCG VIAL IV (16:12)
[2021-08-22] MEDS: 0.9% Saline Lock 10 ML Syringe IV (16:12)
[2021-08-22] MEDS: Hydrocortisone 10 MG Tablet PO (16:12)
[2021-08-23] VITALS (16 sets, daily range): BP systolic 94–119; BP diastolic 54–84; PULSE 62–89; RESP 13–18; TEMP 36.2–37; O2SAT 91–97
--- NOTE | 2021-08-23 06:26 | PN.HOSP_ITS ---
Objective Data Objective Data Vital Signs: Vital Signs Temp Pulse Resp BP Pulse Ox 98.6 F 67 16 107/65 94 08/23/21 04:32 08/23/21 04:32 08/23/21 04:32 08/23/21 04:32 08/23/21 04:32 Oxygen Delivery Method Room Air Weight: 185 lb 10.067 oz Body Mass Index (BMI) 28.2 Intake & Output: Intake and Output for Last 24 Hours 08/21/21 08/22/21 08/23/21 23:59 23:59 23:59 Intake Total 1800 / 1806 806 / 806 0 / 0 Output Total 1675 / 1675 450 / 450 Balance 125 / 131 356 / 356 0 / 0 Lab / Micro Data Result Diagrams: 08/22/21 04:40 08/22/21 04:40 Labs: Laboratory Results - last 24 hr 08/22/21 04:40: WBC 12.8 H, RBC 3.31 L, Hgb 8.4 L, Hct 27.6 L, MCV 83.4, MCH 25.4 L, MCHC 30.4 L, RDW Std Deviation 58.4 H, RDW Coeff of Mary Alice 19.5 H, Plt Count 145 L, MPV 11.6, Immature Gran % (Auto) 0.900, Neut % (Auto) 90.1 H, Lymph % (Auto) 6.6 L, Wheeler % (Auto) 2.2, Eos % (Auto) 0.1, Baso % (Auto) 0.1, Absolute Neuts (auto) 11.5 H, Absolute Lymphs (auto) 0.84, Nucleated RBC % 0 08/22/21 04:40: Total Creatine Kinase 600 H, Triglycerides 62, Cholesterol 240 H , LDL Cholesterol 184 H, VLDL Cholesterol 12, HDL Cholesterol 44 Physical Exam Narrative Physical Examination: General: Awake, alert, oriented times greater than 3, seated upright in the ICU bed, eating breakfast, no acute distress. Skin: Normal color, normal turgor, no icterus, no cyanosis. HEENT: AT/NC, EOMI, PERRLA, improved MMM. Lungs: Diminished, greater bases, moderate effort, no rales, ronchi or wheezing. Heart: Regular rate and rhythm; no gallop, rub audible. Abdomen: Soft, NTTP, ND, normalized bowel sounds. Extremities: No cyanosis, clubbing, or significantly noted edema. Neurological: Patient awake, alert, oriented as noted, cognitive function improving, likely nearing baseline intact; pupils equally reactive to light and accommodation, cranial nerves II-XII grossly normal, moving all 4 extremities, no focal deficits, strength improving, mildly to moderately global decrease secondary to acute presentation. Psychiatric: Affect appears normalized, more interactive, no acute evidence of depressive or anxiety feelings. Assessment & Plan Assessment/Plan (1) Myxedema coma: (2) Pericardial effusion: PLAN: The patient is a 41 y/o F w/ unclear past medical history who presented to the [facility] on 08/20/21 with history per EMS of recent discharge from [facility] following admission for complications with RSV with 08/12/2021 letter to her which arrived with her family recommending follow-up immediately secondary to elevated TSH of 80 found following discharge however patient per report did not follow-up with onset significant lethargy, found by a friend seated on the toilet prompting ED evaluation. #1. 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 FLP obtained with TG 62, total cholesterol 240, LDL 184, VLDL 12, HDL 44. 08/22/2021 evaluation by clinical social work therapist, Dr. Swanson with transition off of IV hydrocortisone to Cortef 20 mg p.o. every morning and 10 mg p.o. q. 1700 in addition to continued IV levothyroxine until T3 less than 0.5 with transition to 100 mcg daily at that point. Discussed early follow-up with endocrinology who would like to see the patient on 09/16/2021 at 4:30 PM. #2. Incidental moderate pericardial effusion: 08/21/2021 echocardiogram with EF 60%, LV systolic function normal, trivial MVI, trivial TVI, trivial PVI, moderate pericardial effusion, no evidence of any tamponade, no evidence for diastolic dysfunction. #3. Severe constipation: KUB with nonspecific bowel gas pattern, administer Dulcolax suppository given n.p.o. status, given improvement will initiate aggressive bowel regimen with MiraLAX twice daily until improves and de- escalation once appropriate. #4. Recent RSV viral bronchitis: Records requested from [facility] as patient had obviously a prolonged admission of some sort especially given that they obtained TSH while she was there; however, from discussions with patient that his lab resulted following her discharge and she received a letter in the mail that they were unable to reach her and encouraged her to seek evaluation given the level. Records requested. #5. DVT prophylaxis: SCDs, Lovenox.
[2021-08-23 07:28] LABS: Absolute Lymphocyte Count 1.95 X10^3/uL (0.83-4.51); Absolute Neutrophil Count 7.6 X10^3/uL (2.0-7.7); Basophil# 0.05 X10^3/uL; Basophil% 0.5 % (0-1); Eosinophil# 0.12 X10^3/uL; Eosinophils% 1.2 % (0-5); Hematocrit 27.7 % (37-47); Hemoglobin 8.5 g/dL (12.0-15.0); Lymphocyte # 1.95 X10^3/ul (0.83-4.51); Lymphocyte % 18.9 % (19-41); Mean Corp Hgb Conc 30.7 g/dL (32-36); Mean Corpuscular Hgb 25.5 pg (27.0-32.0); Mean Corpuscular Volume 83.2 fL (81-99); Mean Platelet Vol. 9.6 fl (6.2-12.0); Monocyte# 0.54 X10^3/uL; Monocyte% 5.2 % (0-10); NRBC Flagged by Analyzer 0 % (0-5); Neutrophil # 7.63 X10^3/uL (2.7-7.7); Neutrophil % 73.8 % (47-70); Platelet Count 260 K/mm3 (150-450); RBC Distribution Width CV 19.7 % (11.6-14.6); RBC Distribution Width SD 57.9 fl (35.1-43.9); Red Blood Count 3.33 M/mm3 (4.2-5.4); White Blood Count 10.3 K/mm3 (4.4-11.0)
[2021-08-23 08:24] LABS: ALB/GLOB Ratio 0.7 RATIO (0.9-2.4); AST(SGOT) 34 U/L (15-37); Alanine Aminotransfer ALT/SGPT 38 U/L (13-56); Albumin, Serum 2.9 g/dL (3.2-5.0); Alkaline Phosphatase 37 U/L (45-117); Anion Gap 7 (5-15); BUN 18 mg/dL (7-18); BUN/Creat Ratio 27.2 RATIO (10-20); Calcium,Total 8.7 mg/dL (8.5-10.1); Chloride 105 mmol/L (98-107); Creatinine, Serum 0.66 mg/dL (0.55-1.02); EST Glomerular Filtration Rate 105 mL/min (>60); Est Glom Filt Rate - Afr Amer 127 mL/min (>60); Estimated Creatinine Clearance 106.07 ml/min; Free T3 < 0.5 pg/mL (2.18-3.98); Globulin 4.4 g/dL (2.2-4.2); Glucose 76 mg/dL (74-106); Potassium 3.8 mmol/L (3.5-5.1); Protein, Total 7.3 g/dL (6.4-8.2); Sodium Level 139 mmol/L (136-145); T4 Free Direct 0.58 ng/dL (0.76-1.46)
[2021-08-23 08:26] LABS: CPK Total, Creatine Kinase 328 U/L (26-192)
[2021-08-23] MEDS: Enoxaparin 40 MG/0.4 ML Syringe SC (10:17)
[2021-08-23] MEDS: Hydrocortisone 10 MG Tablet 20 MG PO (10:17)
[2021-08-23] MEDS: Polyethylene Glycol 3350 17 GM PACKET PO (10:19)
[2021-08-23] MEDS: Acetaminophen 325 MG Tablet 650 MG PO (12:28)
[2021-08-23] MEDS: LEVOTHYROXINE SODIUM 200 MCG VIAL 150 MCG IV (12:28)
[2021-08-23] MEDS: 0.9% Saline Lock 10 ML Syringe IV (12:29)
--- NOTE | 2021-08-23 12:36 | PN.HOSP_ITS ---
Subjective Subjective Patient overnight with no acute events per self and per nursing report. Patient's alert this morning, seated upright and transition to the PCU. She does state that she is more fatigued she had to transition out of the ICU to PCU overnight secondary to bed necessity. Did discuss at length current plan which included increase of her levothyroxine and continue treatments inpatient given her labs have not improved and in fact her TSH did increase with discussions again with endocrinology with recommended increase of levothyroxine to 150 IV daily. Patient denies fevers, chills, nausea, emesis, abdominal pain, chest pain or dyspnea. Objective Data Objective Data Vital Signs: Vital Signs Temp Pulse Resp BP Pulse Ox 97.2 F L 89 18 114/68 97 08/23/21 09:15 08/23/21 11:00 08/23/21 09:15 08/23/21 09:15 08/23/21 09:30 Oxygen Delivery Method Room Air Weight: 185 lb 10.067 oz Body Mass Index (BMI) 28.2 Intake & Output: Intake and Output for Last 24 Hours 08/21/21 08/22/21 08/23/21 23:59 23:59 23:59 Intake Total 1800 / 1806 806 / 806 0 / 0 Output Total 1675 / 1675 450 / 450 Balance 125 / 131 356 / 356 0 / 0 Lab / Micro Data Result Diagrams: 08/23/21 06:45 08/23/21 06:45 Labs: Laboratory Results - last 24 hr 08/22/21 04:40: WBC 12.8 H, RBC 3.31 L, Hgb 8.4 L, Hct 27.6 L, MCV 83.4, MCH 25.4 L, MCHC 30.4 L, RDW Std Deviation 58.4 H, RDW Coeff of Mary Alice 19.5 H, Plt Count 145 L, MPV 11.6, Immature Gran % (Auto) 0.900, Neut % (Auto) 90.1 H, Lymph % (Auto) 6.6 L, Carver % (Auto) 2.2, Eos % (Auto) 0.1, Baso % (Auto) 0.1, Absolute Neuts (auto) 11.5 H, Absolute Lymphs (auto) 0.84, Nucleated RBC % 0 08/23/21 06:45: WBC 10.3, RBC 3.33 L, Hgb 8.5 L, Hct 27.7 L, MCV 83.2, MCH 25.5 L, MCHC 30.7 L, RDW Std Deviation 57.9 H, RDW Coeff of Mary Alice 19.7 H, Plt Count 260, MPV 9.6, Immature Gran % (Auto) 0.400, Neut % (Auto) 73.8 H, Lymph % (Auto) 18.9 L, Carver % (Auto) 5.2, Eos % (Auto) 1.2, Baso % (Auto) 0.5, Absolute Neuts (auto) 7.6, Absolute Lymphs (auto) 1.95, Nucleated RBC % 0 08/23/21 06:45: Sodium 139, Potassium 3.8, Chloride 105, Carbon Dioxide 27.0, Anion Gap 7, BUN 18, Creatinine 0.66, Estim Creat Clear Calc 106.07, Est GFR (MDRD) Af Amer 127, Est GFR (MDRD) Non-Af 105, BUN/Creatinine Ratio 27.2 H, Glucose 76, Calcium 8.7, Total Bilirubin 0.20, AST 34, ALT 38, Alkaline Phosphatase 37 L, Total Protein 7.3, Albumin 2.9 L, Globulin 4.4 H, Albumin/Globulin Ratio 0.7 L, TSH 90.20 H, Free T4 0.58 L, Free T3 pg/dL < 0.5 L 08/23/21 06:45: Total Creatine Kinase 328 H Physical Exam Narrative Physical Examination: General: Awake, alert, oriented times greater than 3, seated upright in the PCU bed, no acute distress. Skin: Normal color, normal turgor, no icterus, no cyanosis. HEENT: AT/NC, EOMI, PERRLA, MMM, enlarged tongue consistent with presentation. Lungs: Diminished, greater bases, moderate effort, no rales, ronchi or wheezing. Heart: Regular rate and rhythm; no gallop, rub audible. Abdomen: Soft, NTTP, ND, normalized bowel sounds. Extremities: No cyanosis, clubbing, or significantly noted edema. Neurological: Patient awake, alert, oriented as noted, cognitive function im proving, likely nearing baseline intact; pupils equally reactive to light and accommodation, cranial nerves II-XII grossly normal, moving all 4 extremities, no focal deficits, strength improved, mild global decrease. Psychiatric: Affect appears normalized, no acute evidence of depressive or anxiety feelings. Assessment & Plan Assessment/Plan (1) Myxedema coma: (2) Pericardial effusion: PLAN: The patient is a 41 y/o F w/ unclear past medical history who presented to the [facility] on 08/20/21 with history per EMS of recent discharge from [facility] following admission for complications with RSV with 08/12/2021 letter to her which arrived with her family recommending follow-up immediately secondary to elevated TSH of 80 found following discharge however patient per report did not follow-up with onset significant lethargy, found by a friend seated on the toilet prompting ED evaluation. #1. 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 every morning and 10 mg p.o. every afternoon which will not need to be continued at discharge per discussion with endocrinology, initially had been on levothyroxine 100 mcg IV daily however 08/23/2021 will increase to 150 mcg IV daily per discussion with endocrinology given TSH unfortunately fernando on repeat labs, initially TSH, free T4 and T3 as well as T CK had been improving with 08/22/21 TSH 66.4, free T4 0.56, free T3 less than 0.5, T CK 600, FLP obtained with TG 62, total cholesterol 240, LDL 184, VLDL 12, HDL 44-->08/23/21 TSH 90.20, free T4 0.58, free T3 less than 0.5, total creatinine kinase 328. Patient will need to be continued on this current regimen per discussion with endocrinology until free T3 is less than 0.6 pg/mL L. Discussed early follow-up with endocrinology who would like to see the patient on 09/16/2021 at 4:30 PM. #2. Incidental moderate pericardial effusion: 08/21/2021 echocardiogram with EF 60%, LV systolic function normal, trivial MVI, trivial TVI, trivial PVI, moderate pericardial effusion, no evidence of any tamponade, no evidence for diastolic dysfunction. #3. Severe constipation: KUB with nonspecific bowel gas pattern, administer Dulcolax suppository given n.p.o. status, given improvement will initiate a ggressive bowel regimen with MiraLAX twice daily until improves and de- escalation once appropriate. #4. Recent RSV viral bronchitis: Patient with recent admission at [facility] for RSV viral bronchitis, discharged to home and received at a later time a follow-up letter noting that she had a TSH that was checked and resulted after her discharge and was significantly elevated with recommendation to follow-up with immediate evaluation. Records requested. #5. DVT prophylaxis: SCDTasneem cornell. Charges/Coding Visit Charges Inpatient E&M: 90409 Subs Hosp L2
--- NOTE | 2021-08-23 14:49 | NURSING ---
Read and reviewed SN documentation
[2021-08-23] MEDS: Hydrocortisone 10 MG Tablet PO (16:25)
--- NOTE | 2021-08-23 19:52 | EKG12_ITS ---
Test Reason : RHYTHM CHANGE Blood Pressure : / mmHG Vent. Rate : 069 BPM Atrial Rate : 208 BPM P-R Int : 000 ms QRS Dur : 104 ms QT Int : 376 ms P-R-T Axes : 027 055 057 degrees QTc Int : 402 ms Normal sinus rhythm Low voltage QRS Borderline ECG When compared with ECG of 20-AUG-2021 18:15, Current undetermined rhythm precludes rhythm comparison, needs review Confirmed by CASSIE MARIE, ARLINE ([id number]), manager editorial JOSE LEE ([id number]) on 08/27/2021 10:11:33 AM Referred By: JANETT Confirmed By:ARLINE MATTHEWS MD
--- NOTE | 2021-08-23 19:54 | CT_ITS ---
HISTORY: unresponsive TECHNIQUE: Multiple axial images were obtained of the brain without intravenous contrast. A radiation dose optimization technique was used for this scan. IV Contrast dosage and agent: None. COMPARISON: None FINDINGS: # of images incl. paperwork: [id number] PARANASAL SINUSES AND MASTOID AIR CELLS: Extensive opacification in the bilateral maxillary and sphenoid sinuses with involvement of the left frontal sinus. INTRACRANIAL HEMORRHAGE: None. BRAIN PARENCHYMA: No CT evidence of stroke. No intracranial masses. There is preservation of the haynes/white matter interface. Posterior fossa structures are unremarkable. CSF SPACES: Appropriate for age. There is no hydrocephalus. MASS EFFECT: None. CALVARIUM: Intact. CT/Brain/Head without Contrast IMPRESSION: No acute intracranial findings. Pansinusitis. Individualized dose optimization techniques were used for this CT. at 2214 Reported and signed by: Vinay Salmeron MD Electronically Signed: Vinay Salmeron MD at 22:13 EST Tel , Service support ,
[2021-08-23 20:11] LABS: Allen Test Positive; Base Excess 4 mmol/L (-2 to +2); Bicarbonate 28.1 mmol/L (22-26); Blood Gas Specimen Type ART; PO2 60 mmHG (75-100); SITE L Radial; SO2 92 % (95-99); Total Carbon Dioxide 29 mmol/L; pCO2 40.4 mmHg (35-45); pH 7.45 (7.35-7.45)
[2021-08-23 20:21] LABS: Bedside Glucose 149 mg/dL (70-110)
--- NOTE | 2021-08-23 20:21 | CM.ED ---
SW Note Referral Source: HOSPICE TEAM LEAD Referral Reason: HOSPICE TEAM LEAD SW responded to HOSPICE TEAM LEAD for patient. No family present however, PCU staff advised that 2 women were in the ED for family. SW met with 2 women (both patient's daughter) who said that their grandmother called and said to come to the ED. SW took them to the PCU waiting room and then they were updated by Nathaly the lot associate. SW then escorted them out of the building as the RN reported that patient was ok but they were running some testing. Patient's daughter said that their grandmother had called and said that their mother was unresponsive and told them to come to the ED. SW remains available if needs arise. Marcy STEWART
--- NOTE | 2021-08-23 20:24 | PN.HOSP_ITS ---
Hospitalist Note The rapid response was called as the patient went to unresponsive episode. Of note, I admitted the patient couple days ago in ICU with unresponsiveness and unconscious state, myxedema coma. As per the daytime hospitalist, patient was awake alert and oriented x3. She was responding well. As per the night nurse, patient was also was on her cell phone and said light bothering her and then went into sudden unresponsive episode. Vitals done blood pressure 128/81, temperature 98.6, pulse 70/min, pulse ox 95% on room air, glucose 149. Patient did not have any prior imaging. Twelve-lead EKG shows sinus rhythm with low voltage QRS. ABG 7.4 / on room air. CT head stat ordered. The wait report by Dr. Iniguez said no acute intracranial change but chronic sinusitis and scalp nodules. [facility] teleneurology robotic beam was called and I discussed with DR Gilbert. His impression is similar to me that less likely stroke or seizure. First im pression generalized encephalopathy probably from encephalopathy or psychogenic. During teleneurology consult, patient verbally said she is tired first time since her admit response. She responds by head nodding that she does not have chronic alcohol use or substance use history. Denies history of seizures by nodding head. Patient opens mouth. On exam Neuro: There is no consistent finding of weakness of upper or lower extremities. She withdraws left upper extremity and right upper extremity but less than right upper and left lower extremity. She moved her right upper extremity. Neuro exam findings not consistent with focal neurological deficit or stroke. Labs ordered. Neurologist recommendations: If there is further deterioration in neurological findings or focal neurological finding, can do CT angiogram with contrast after talking to the appeals court associate justice for its effect of IV iodine contrast on thyroid status. Same for MRI and EEG for tomorrow a.m. If further determination can reconsult. Recommends no change in the medication. Total time of the visit including total time spent in counseling or coordination of care, (more than 50% of the total time, spent in obtaining medical information from nurses and other ancillary care providers, review of patient's history, labs, imaging, diagnosis and management), discussion with [facility] neurologist, bedside management 60 minutes Clinical Impression(s) from Imaging Studies Chest X-Ray 08/20/21 18:18 IMPRESSION: There is bilateral infiltrate. Electronically Signed: Matthew Fitzgerald MD at 18:29 EST , Service support , Abdomen X-Ray 08/21/21 05:55 IMPRESSION: Distention of the colon due to gas and fecal material down to the level of the rectum. Electronically Signed: Juan R Pan MD at 12:53 EST , Service support , Echocardiogram 08/21/21 05:55 Interpretation Summary The study was technically difficult. Left ventricular systolic function is normal. The estimated ejection fraction is 60 %. Apical false tendon noted. Trivial mitral valve insufficiency. Trivial tricuspid valve insufficiency. Trivial pulmonic valve insufficiency. Moderate pericardial effusion. There are no echocardiographic indications of cardiac tamponade. Unable to estimate RV systolic pressure/pulmonary artery pressure due to technically difficult study. No evidence for diastolic dysfunction. ____ Ordering Physician: Lon Martinez Referring Physician: NO PCP Performed By: Gricelda Sapp, VIVIANA, RVT Procedures Hospitalists Procedures: 75778 Critial Care 1st Hr
--- NOTE | 2021-08-23 21:06 | NURSING ---
This nurse attempted to call both contacts in patient chart the mother and aunt both numbers are disconnected or no longer in service. To make them aware that patient has been moved to ICU.
--- NOTE | 2021-08-23 21:59 | NURSING ---
[facility] tele medicine on computer in room talking with Dr. Martinez, this RN, and patient. This occurred at 08/23/21 2100.
--- NOTE | 2021-08-23 22:04 | NURSING ---
Rapid response called in PCU. Pt. found to be unresponsive, but vital signs were stable. Pt transported to radiology for a head CT. CT then transferred to ICU for closer monitoring. [facility] neurologist on computer, Dr. Martinez, and this RN present at bedside for neuro assessment at 2100.
[2021-08-23 22:18] LABS: Absolute Lymphocyte Count 1.05 X10^3/uL (0.83-4.51); Absolute Neutrophil Count 6.9 X10^3/uL (2.0-7.7); Basophil# 0.06 X10^3/uL; Basophil% 0.7 % (0-1); Eosinophils% 2.3 % (0-5); Hematocrit 25.6 % (37-47); Lymphocyte # 1.05 X10^3/ul (0.83-4.51); Lymphocyte % 12.1 % (19-41); Mean Corp Hgb Conc 31.3 g/dL (32-36); Mean Corpuscular Volume 83.1 fL (81-99); Mean Platelet Vol. 9.4 fl (6.2-12.0); Monocyte# 0.44 X10^3/uL; Monocyte% 5.1 % (0-10); NRBC Flagged by Analyzer 0 % (0-5); Neutrophil # 6.91 X10^3/uL (2.7-7.7); Neutrophil % 79.3 % (47-70); POSITIVE MORPHOLOGY YES; Platelet Count 250 K/mm3 (150-450); RBC Distribution Width CV 20.2 % (11.6-14.6); RBC Distribution Width SD 59.9 fl (35.1-43.9); Red Blood Count 3.08 M/mm3 (4.2-5.4); White Blood Count 8.7 K/mm3 (4.4-11.0)
[2021-08-23 22:21] LABS: Differential Indicated SCAN CRITERIA MET
[2021-08-23 22:27] LABS: ALB/GLOB Ratio 0.7 RATIO (0.9-2.4); AST(SGOT) 38 U/L (15-37); Alanine Aminotransfer ALT/SGPT 43 U/L (13-56); Albumin, Serum 2.9 g/dL (3.2-5.0); Alkaline Phosphatase 39 U/L (45-117); Anion Gap 6 (5-15); BUN 16 mg/dL (7-18); BUN/Creat Ratio 22.8 RATIO (10-20); Calcium,Total 8.5 mg/dL (8.5-10.1); Chloride 103 mmol/L (98-107); EST Glomerular Filtration Rate 98 mL/min (>60); Est Glom Filt Rate - Afr Amer 119 mL/min (>60); Estimated Creatinine Clearance 100.01 ml/min; Globulin 4.3 g/dL (2.2-4.2); Glucose 110 mg/dL (74-106); Magnesium 2.1 mg/dL (1.6-2.6); Phosphorus 2.4 mg/dL (2.5-4.9); Protein, Total 7.2 g/dL (6.4-8.2); Sodium Level 138 mmol/L (136-145)
[2021-08-23 22:44] LABS: Anisocytosis 1+; Differential Comment SCANNED
[2021-08-24] VITALS (15 sets, daily range): BP systolic 100–114; BP diastolic 61–85; PULSE 57–80; RESP 11–17; TEMP 36.1–36.8; O2SAT 92–99
[2021-08-24 04:30] LABS: Absolute Lymphocyte Count 1.76 X10^3/uL (0.83-4.51); Basophil# 0.07 X10^3/uL; Basophil% 0.8 % (0-1); Eosinophil# 0.24 X10^3/uL; Eosinophils% 2.8 % (0-5); Hematocrit 28.8 % (37-47); Hemoglobin 8.8 g/dL (12.0-15.0); Lymphocyte # 1.76 X10^3/ul (0.83-4.51); Lymphocyte % 20.4 % (19-41); Mean Corp Hgb Conc 30.6 g/dL (32-36); Mean Corpuscular Hgb 25.7 pg (27.0-32.0); Mean Corpuscular Volume 84.2 fL (81-99); Mean Platelet Vol. 9.2 fl (6.2-12.0); Monocyte# 0.52 X10^3/uL; NRBC Flagged by Analyzer 0 % (0-5); Neutrophil % 69.5 % (47-70); Platelet Count 254 K/mm3 (150-450); RBC Distribution Width SD 60.9 fl (35.1-43.9); Red Blood Count 3.42 M/mm3 (4.2-5.4); White Blood Count 8.6 K/mm3 (4.4-11.0)
[2021-08-24 05:20] LABS: CPK Total, Creatine Kinase 285 U/L (26-192)
[2021-08-24 05:21] LABS: ALB/GLOB Ratio 0.7 RATIO (0.9-2.4); AST(SGOT) 34 U/L (15-37); Alanine Aminotransfer ALT/SGPT 42 U/L (13-56); Alkaline Phosphatase 38 U/L (45-117); Anion Gap 5 (5-15); BUN 15 mg/dL (7-18); BUN/Creat Ratio 23.7 RATIO (10-20); Calcium,Total 8.2 mg/dL (8.5-10.1); Chloride 102 mmol/L (98-107); Creatinine, Serum 0.63 mg/dL (0.55-1.02); EST Glomerular Filtration Rate 111 mL/min (>60); Est Glom Filt Rate - Afr Amer 134 mL/min (>60); Estimated Creatinine Clearance 111.12 ml/min; Free T3 < 0.5 pg/mL (2.18-3.98); Globulin 4.4 g/dL (2.2-4.2); Glucose 79 mg/dL (74-106); Potassium 4.1 mmol/L (3.5-5.1); Protein, Total 7.4 g/dL (6.4-8.2); Sodium Level 137 mmol/L (136-145); T4 Free Direct 0.68 ng/dL (0.76-1.46)
--- NOTE | 2021-08-24 05:55 | MRI_ITS ---
HISTORY: acute encephalopathy -- sudden episode of unresponsiveness. TECHNIQUE: Multiplanar and multisequence MR images of the brain were obtained without gadolinium. # of images incl. paperwork: 284. COMPARISON: CT prior day. FINDINGS: BRAIN PARENCHYMA: Minimal T2 FLAIR hyperintense signal in the cerebral white matter. No abnormal focus of restricted diffusion. INTRACRANIAL HEMORRHAGE: No acute intracranial hemorrhage. CSF SPACES: Cerebral ventricles, cortical sulci, and other extra-axial CSF spaces within normal limits in size . No midline shift or other significant mass effect. No extra-axial fluid collection. VASCULAR SYSTEM: Major intracranial flow-voids maintained. ORBITS: Unremarkable. PARANASAL SINUSES: Marked opacification of the frontal ethmoid and bilateral maxillary sinuses. MRI/Brain without Contrast IMPRESSION: No evidence for acute infarct. Very mild chronic white matter changes. Frontal ethmoid and maxillary sinusitis. at 1134 Reported and signed by: Diana Terrell MD Electronically Signed: Diana Terrell MD at 11:33 EST Tel , Service support ,
--- NOTE | 2021-08-24 11:47 | PN.HOSP_ITS ---
Documented by User: Meena Ruiz NP-C 08/24/21 11:58 Subjective Subjective Patient seen and examined. Patient states she is feeling improved this morning. Patient states that she remembers talking to her mom last night but does not remember anything between talking to her mom and waking to nurses in her room yelling her name. Objective Data Objective Data Vital Signs: Vital Signs Temp Pulse Resp BP Pulse Ox 97.8 F 73 13 110/79 99 08/24/21 08:00 08/24/21 09:00 08/24/21 09:00 08/24/21 09:00 08/24/21 09:00 Oxygen Delivery Method Room Air Weight: 183 lb 10.321 oz Body Mass Index (BMI) 28.2 Intake & Output: Intake and Output for Last 24 Hours 08/22/21 08/23/21 08/24/21 23:59 23:59 23:59 Intake Total 806 / 806 360 / 360 Output Total 450 / 450 850 / 850 Balance 356 / 356 360 / 360 -850 / -850 Lab / Micro Data Result Diagrams: 08/24/21 04:15 08/24/21 04:15 Labs: Laboratory Results - last 24 hr 08/23/21 19:35: POC Glucose 149 H 08/23/21 21:45: WBC 8.7, RBC 3.08 L, Hgb 8.0 L, Hct 25.6 L, MCV 83.1, MCH 26.0 L , MCHC 31.3 L, RDW Std Deviation 59.9 H, RDW Coeff of Mary Alice 20.2 H, Plt Count 250, MPV 9.4, Immature Gran % (Auto) 0.500, Neut % (Auto) 79.3 H, Lymph % (Auto) 12.1 L, Tompkins % (Auto) 5.1, Eos % (Auto) 2.3, Baso % (Auto) 0.7, Absolute Neuts (auto) 6.9, Absolute Lymphs (auto) 1.05, Nucleated RBC % 0, Differential Comment SCANNED, Anisocytosis 1+ 08/23/21 21:45: Sodium 138, Potassium 4.0, Chloride 103, Carbon Dioxide 29.0, Anion Gap 6, BUN 16, Creatinine 0.70, Estim Creat Clear Calc 100.01, Est GFR (MDRD) Af Amer 119, Est GFR (MDRD) Non-Af 98, BUN/Creatinine Ratio 22.8 H, Glucose 110 H, Calcium 8.5, Phosphorus 2.4 L, Magnesium 2.1, Total Bilirubin 0.10 L, AST 38 H, ALT 43, Alkaline Phosphatase 39 L, Total Protein 7.2, Albumin 2.9 L, Globulin 4.3 H, Albumin/Globulin Ratio 0.7 L 08/24/21 04:15: WBC 8.6, RBC 3.42 L, Hgb 8.8 L, Hct 28.8 L, MCV 84.2, MCH 25.7 L , MCHC 30.6 L, RDW Std Deviation 60.9 H, RDW Coeff of Mary Alice 20.0 H, Plt Count 254, MPV 9.2, Immature Gran % (Auto) 0.500, Neut % (Auto) 69.5, Lymph % (Auto) 20.4, Tompkins % (Auto) 6.0, Eos % (Auto) 2.8, Baso % (Auto) 0.8, Absolute Neuts (auto) 6.0, Absolute Lymphs (auto) 1.76, Nucleated RBC % 0 08/24/21 04:15: Sodium 137, Potassium 4.1, Chloride 102, Carbon Dioxide 30.0, Anion Gap 5, BUN 15, Creatinine 0.63, Estim Creat Clear Calc 111.12, Est GFR (MDRD) Af Amer 134, Est GFR (MDRD) Non-Af 111, BUN/Creatinine Ratio 23.7 H, Glucose 79, Calcium 8.2 L, Total Bilirubin 0.20, AST 34, ALT 42, Alkaline Phosphatase 38 L, Total Protein 7.4, Albumin 3.0 L, Globulin 4.4 H, Albumin/Globulin Ratio 0.7 L, TSH 73.80 H, Free T4 0.68 L, Free T3 pg/dL < 0.5 L 08/24/21 04:15: Total Creatine Kinase 285 H ABG Data ABG results: ABG 08/23/21 20:04 Specimen Type ART Sample Site L Radial pH 7.45 Bicarbonate Actual 28.1 H Total CO2 29 Base Excess 4 H O2 Saturation 92 L ABG pCO2 40.4 ABG pO2 60 L Perry Test Positive Radiography Diagnostic Testing: Radiology Impression Brain CT 08/23/21 19:54 IMPRESSION: No acute intracranial findings. Pansinusitis. Individualized dose optimization techniques were used for this CT. at 2214 Reported and signed by: Vinay Salmeron MD Electronically Signed: Vinay Salmeron MD at 22:13 EST Tel , Service support , Brain MRI 08/24/21 05:55 IMPRESSION: No evidence for acute infarct. Very mild chronic white matter changes. Frontal ethmoid and maxillary sinusitis. at 1134 Reported and signed by: Diana Terrell MD Electronically Signed: Diana Terrell MD at 11:33 EST Tel , Service support , Physical Exam Const alert, oriented x3 and no apparent distress HEENT head/scalp atraumatic Head and Scalp: normocephalic Eyes conjunctivae normal and no scleral icterus Neck full ROM and supple General: trachea midline Resp normal respiratory effort, normal air movement and clear to auscultation bilaterally Cardio regular rate, regular rhythm, S1 normal heart sound and S2 normal heart sound GI normal to inspection, nondistended, normoactive bowel sounds, soft to palpation and non-tender Extremity normal to inspection, full ROM and no clubbing, cyanosis or edema Peripheral Pulses: Yes pulses 2+ throughout Skin no rashes or lesions noted, no wounds and skin turgor normal Neuro oriented x3, moves all extremities, no focal motor deficits and no sensory deficits noted Sensorium / Orientation: awake and alert Psych affect normal Assessment & Plan Assessment/Plan (1) Myxedema coma: (2) Pericardial effusion: PLAN: 1. Myxedema coma secondary to not diagnosed hypothyroidism -Overnight patient was transferred to ICU due to unresponsive episode during which patient's vital signs remained stable. Patient was evaluated by [facility] tel[facility] robotic team who did not feel that it was likely this patient had a seizure or stroke was most likely secondary to encephalopathy. Patient will go for MRI today at the recommendation of teleneurology. Due to this patient will stay in ICU today and if stable with no more unresponsive episodes we will plan for transfer back to PCU 08/25/2021 -Continue oral Cortef -Continue IV levothyroxine 150 mcg daily -TSH and T4 improved today, T3 remains less than 0.5. CPK also improved -Per discussion with Dr. Swanson on 08/23/2021 patient should continue on current regimen until T3 is less than 0.6. Patient has outpatient follow-up with endocrinology on 09/16/2021 at 4:30 PM 2. Moderate pericardial effusion -08/21/2021 echocardiogram demonstrates EF 60%, LV systolic function normal, trivial MVI, trivial TVI, moderate pericardial effusion, no evidence of any tamponade, no evidence for diastolic dysfunction. 3. Severe constipation -Patient reports that she did have a bowel movement on Thursday however it was small. -Continue twice daily MiraLAX -Patient denies nausea, vomiting, abdominal pain DVT prophylaxis-subcu Lovenox This patient was seen by Meena Ruiz NP-C under the supervision of Dr. Vitale Documented by User: Dr. Alexandro Vitale, 08/24/21 15:20 Subjective Subjective Events noted. Objective Data Lab / Micro Data Result Diagrams: 08/24/21 04:15 08/24/21 04:15 Physical Exam Const alert and no apparent distress HEENT head/scalp atraumatic Head and Scalp: normocephalic Eyes PERRL Resp normal respiratory effort, no retractions, no use of accessory muscles and clear to auscultation bilaterally Cardio regular rate, regular rhythm, S1 normal heart sound and S2 normal heart sound GI normal to inspection, nondistended, normoactive bowel sounds, soft to palpation, non-tender and non-distended Extremity normal to inspection, full ROM and no clubbing, cyanosis or edema Skin no rashes or lesions noted Neuro oriented x3, CN's II-XII intact bilaterally, moves all extremities and no focal motor deficits Sensorium / Orientation: awake, alert and oriented to person Psych affect normal Assessment & Plan Assessment/Plan (1) Myxedema coma: (2) Metabolic encephalopathy: PLAN: Patient seen and examined independently. Data and vitals reviewed. I agree with the above note by the nurse practitioner. 1. Myxedema coma Improving Continue without levothyroxine Follow-up with endocrinology as outpatient 2. Metabolic encephalopathy Transient episode last night Since resolved MRI negative No additional work-up at this time other than treating the primary issue. Charges/Coding Visit Charges Inpatient E&M: 51756 Subs Hosp L3
[2021-08-24] MEDS: Hydrocortisone 10 MG Tablet 20 MG PO (11:50)
[2021-08-24] MEDS: Enoxaparin 40 MG/0.4 ML Syringe SC (11:50)
[2021-08-24] MEDS: Polyethylene Glycol 3350 17 GM PACKET PO ×2 (11:55→20:39)
[2021-08-24] MEDS: LEVOTHYROXINE SODIUM 200 MCG VIAL 150 MCG IV (12:29)
[2021-08-24] MEDS: Bisacodyl 5 MG Tablet 10 MG PO (15:52)
[2021-08-24] MEDS: Hydrocortisone 10 MG Tablet PO (17:06)
--- NOTE | 2021-08-24 18:00 | PCS.PANDOC ---
PANDEMIC DOCUMENTATION INITIATED: Date: 05/06/2021 Time: 190
[2021-08-25 04:48] VITALS: BP 119/83; PULSE 92; RESP 16; TEMP 37.2; O2SAT 97
[2021-08-25 07:11] LABS: Absolute Lymphocyte Count 1.82 X10^3/uL (0.83-4.51); Absolute Neutrophil Count 6.6 X10^3/uL (2.0-7.7); Basophil# 0.08 X10^3/uL; Basophil% 0.8 % (0-1); Eosinophil# 0.32 X10^3/uL; Eosinophils% 3.4 % (0-5); Hematocrit 28.1 % (37-47); Hemoglobin 8.6 g/dL (12.0-15.0); Lymphocyte # 1.82 X10^3/ul (0.83-4.51); Lymphocyte % 19.3 % (19-41); Mean Corp Hgb Conc 30.6 g/dL (32-36); Mean Corpuscular Hgb 25.7 pg (27.0-32.0); Mean Corpuscular Volume 83.9 fL (81-99); Mean Platelet Vol. 10.8 fl (6.2-12.0); Monocyte# 0.51 X10^3/uL; Monocyte% 5.4 % (0-10); NRBC Flagged by Analyzer 0 % (0-5); Neutrophil # 6.63 X10^3/uL (2.7-7.7); Neutrophil % 70.5 % (47-70); POSITIVE MORPHOLOGY YES; Platelet Count 243 K/mm3 (150-450); RBC Distribution Width CV 20.1 % (11.6-14.6); RBC Distribution Width SD 59.9 fl (35.1-43.9); Red Blood Count 3.35 M/mm3 (4.2-5.4); White Blood Count 9.4 K/mm3 (4.4-11.0)
[2021-08-25 07:24] VITALS: O2SAT 96
[2021-08-25 07:41] LABS: Differential Indicated SCAN CRITERIA MET
[2021-08-25 07:54] LABS: ALB/GLOB Ratio 0.7 RATIO (0.9-2.4); AST(SGOT) 29 U/L (15-37); Alanine Aminotransfer ALT/SGPT 43 U/L (13-56); Alkaline Phosphatase 39 U/L (45-117); Anion Gap 6 (5-15); BUN 19 mg/dL (7-18); BUN/Creat Ratio 29.1 RATIO (10-20); Calcium,Total 8.7 mg/dL (8.5-10.1); Chloride 102 mmol/L (98-107); Creatinine, Serum 0.65 mg/dL (0.55-1.02); EST Glomerular Filtration Rate 107 mL/min (>60); Est Glom Filt Rate - Afr Amer 129 mL/min (>60); Free T3 0.7 pg/mL (2.18-3.98); Globulin 4.3 g/dL (2.2-4.2); Glucose 69 mg/dL (74-106); Protein, Total 7.3 g/dL (6.4-8.2); Sodium Level 138 mmol/L (136-145); T4 Free Direct 0.69 ng/dL (0.76-1.46)
[2021-08-25 09:07] LABS: Anisocytosis 2+; Differential Comment SCANNED; Macrocytosis 1+; Microcytosis 1+
[2021-08-25 09:10] VITALS: BP 111/80; PULSE 51; RESP 14; TEMP 36.8; O2SAT 94
[2021-08-25] MEDS: Enoxaparin 40 MG/0.4 ML Syringe SC (09:23)
[2021-08-25] MEDS: Polyethylene Glycol 3350 17 GM PACKET PO (09:23)
[2021-08-25] MEDS: Hydrocortisone 10 MG Tablet 20 MG PO (09:24)
[2021-08-25] MEDS: Levothyroxine 150 MCG Tablet PO (09:28)
--- NOTE | 2021-08-25 10:46 | DCINST_ITS ---
Discharge Instructions Diet Discharge Diet: No restrictions Activity Discharge Activity: Return to Normal Activity Dressing / Incision Call your doctor if you observe: Dizziness and Fainting spells Follow Up Care Test Results: Test results from this visit will be discussed in further detail at your follow-up appointment, if applicable. Discharge Plan Admission Admit Date/Time: 08/20/21 20:15 Primary Reason for Your Visit: Myxedema Coma Attending Provider: Alexandro Vitale Primary Care Provider: Care Physician,No Primary Consulting Providers: Patel Colmenares ; Loki Sequeira ; Rochelle Romero CHURCH ADMINISTRATOR Discharge Orders/Prescriptions Prescriptions: New polyethylene glycol 3350 17 gram Powder In Packet 17 g PO DAILY 30 Days Qty: 30 RF: 0 levothyroxine 150 mcg Tablet 150 mcg PO DAILY 30 Days Qty: 30 RF: 0 Referrals / Follow Up: Gabino Swanson MD [STAFF PHYSICIAN] - 09/16/21 4:30 pm Care Physician,No Primary [Primary Care Provider] - Disposition Disposition (needs filled in before D/C Order can be placed): Home, Self Care
[2021-08-25 10:53] VITALS: BP 116/70; PULSE 68; RESP 14; TEMP 36.5; O2SAT 100
--- NOTE | 2021-08-25 10:53 | DS.PCM_ITS ---
Documented by User: ROBERTO Kramer 08/25/21 11:07 Providers Date of Admission: 08/20/21 Primary Care Physician: No Primary Care Phys Consultations 08/20/21 23:30 Consult: Upholsterer Helper / Pulmonary Medicine Routine Consulting Provider: Pulmonary Medicine wilman Rich Reason for Consult: Myxedema coma EMERGENT Consult: No MD Notified: Yes Date Notified: 08/20/21 Time Notified: 20:00 Method of Notification: Verbal Comments:: Notified by Dr. Lazar Reason For Visit: UNRESPONSIVE, MYXOEDEMA COMA Diagnosis Discharge Diagnosis (1) Myxedema coma: Status: Acute Code(s): E03.5 - Myxedema coma (2) Metabolic encephalopathy: Status: Acute Code(s): G93.41 - Metabolic encephalopathy Medications at Discharge Home Medications levothyroxine 150 mcg PO DAILY 30 Days #30 tab 08/25/21 polyethylene glycol 3350 17 g PO DAILY 30 Days #30 ea 08/25/21 Hospital Course Operations None Procedures 2-D Echocardiogram and EKG Summary of Care Provided Minutes Spent on Discharge: 25 Hospital Course: Patient is a 41-year-old female who originally presented to the ER with altered mental status and severe lethargy. Patient had recently been admitted to [facility] for constipation as well as RSV. Patient received a letter dated August 12 from [facility] stating that she had an elevated TSH of 80 and should pursue follow-up. TSH on presentation to ER was greater than 123 was less than 0.5. Patient received IV levothyroxine for 5 days and was transitioned to p.o. levothyroxine on 08/25/2021. Patient was also received IV corticosteroids. Patient underwent echocardiogram during her admission which shows an EF of 60% and a moderate pericardial effusion with no indications of cardiac tamponade. During this admission patient was evaluated by Dr. Khalil stock sheets cleaner inspector who will follow with patient on 09/16/2021 in her outpatient office. Patient will be discharged with levothyroxine 150 mcg daily. Physical Exam Const alert, oriented x3 and no apparent distress HEENT head/scalp atraumatic Eyes PERRL, conjunctivae normal and no scleral icterus Neck full ROM and supple General: trachea midline Resp normal respiratory effort, normal air movement, no retractions, no use of accessory muscles and clear to auscultation bilaterally Cardio regular rate, regular rhythm, S1 normal heart sound and S2 normal heart sound GI normal to inspection, nondistended, normoactive bowel sounds, soft to palpation, non-tender and non-distended Extremity normal to inspection, full ROM and no clubbing, cyanosis or edema Skin no rashes or lesions noted, no wounds and skin turgor normal Neuro oriented x3, CN's II-XII intact bilaterally, moves all extremities, no focal motor deficits and no sensory deficits noted Sensorium / Orientation: awake, alert and oriented to person Psych affect normal Weight / BMI Weight Weight: 182 lb 15.739 oz Body Mass Index (BMI) 28.2 ABG / Lab / Microbiology Data Result Diagrams: 08/25/21 05:23 08/25/21 05:23 Laboratory: Laboratory Results - last 24 hr 08/25/21 05:23: WBC 9.4, RBC 3.35 L, Hgb 8.6 L, Hct 28.1 L, MCV 83.9, MCH 25.7 L , MCHC 30.6 L, RDW Std Deviation 59.9 H, RDW Coeff of Mary Alice 20.1 H, Plt Count 243, MPV 10.8, Immature Gran % (Auto) 0.600, Neut % (Auto) 70.5 H, Lymph % (Auto) 19.3, [place] % (Auto) 5.4, Eos % (Auto) 3.4, Baso % (Auto) 0.8, Absolute Neuts (auto) 6.6, Absolute Lymphs (auto) 1.82, Nucleated RBC % 0, Differential Comment SCANNED, Anisocytosis 2+, Microcytosis 1+, Macrocytosis 1+ 08/25/21 05:23: Sodium 138, Potassium 4.0, Chloride 102, Carbon Dioxide 30.0, Anion Gap 6, BUN 19 H, Creatinine 0.65, Estim Creat Clear Calc 107.70, Est GFR (MDRD) Af Amer 129, Est GFR (MDRD) Non-Af 107, BUN/Creatinine Ratio 29.1 H, Glucose 69 L, Calcium 8.7, Total Bilirubin 0.20, AST 29, ALT 43, Alkaline Phosphatase 39 L, Total Protein 7.3, Albumin 3.0 L, Globulin 4.3 H, Albumin/Globulin Ratio 0.7 L, TSH 85.10 H, Free T4 0.69 L, Free T3 pg/dL 0.7 L Radiography Diagnostic Testing: Radiology Impression Brain MRI 08/24/21 05:55 IMPRESSION: No evidence for acute infarct. Very mild chronic white matter changes. Frontal ethmoid and maxillary sinusitis. at 1134 Reported and signed by: Diana Terrell MD Electronically Signed: Diana Terrell MD at 11:33 EST Tel , Service support , D/C Instructions Discharge Diet: No restrictions Call your doctor if you observe: Dizziness and Fainting spells Meaningful Use Info Meaningful Use Diagnoses (Choose all that apply): None applicable Discharge Plan Admission Admit Date/Time: 08/20/21 20:15 Primary Reason for Your Visit: Myxedema Coma Attending Provider: Alexandro Vitale Primary Care Provider: Care Physician,No Primary Consulting Providers: Patel Colmenares ; Loki Sequeira ; Rochelle Romero LEATHER BELT MAKER Discharge Orders/Prescriptions Prescriptions: New polyethylene glycol 3350 17 gram Powder In Packet 17 g PO DAILY 30 Days Qty: 30 RF: 0 levothyroxine 150 mcg Tablet 150 mcg PO DAILY 30 Days Qty: 30 RF: 0 Referrals / Follow Up: Gabino Swanson MD [STAFF PHYSICIAN] - 09/16/21 4:30 pm Care Physician,No Primary [Primary Care Provider] - Disposition Disposition (needs filled in before D/C Order can be placed): Home, Self Care Documented by User: Dr. Alexandro Vitale DO 08/25/21 11:20 Providers Date of Admission: 08/20/21 Reason For Visit: UNRESPONSIVE, MYXOEDEMA COMA Medications at Discharge Home Medications levothyroxine 150 mcg PO DAILY 30 Days #30 tab 08/25/21 polyethylene glycol 3350 17 g PO DAILY 30 Days #30 ea 08/25/21 Hospital Course Operations None Procedures None Summary of Care Provided Hospital Course: This is 41 year female presents with change in MS and lethargy. Pt was in a myxedema coma due to profound hypothyroidism. She was started on IV levothyroxine 100 mcg/d. That was subsequently increased to 150 mcg/d. Her mental status gradually improved. Pt will be discharged with 150 mcg/d. She was advised to take same time daily, either in AM 60 minutes before her meal, or in evening 3-4 hours after she ate. She will follow up with endocrinology. Physical Exam Const alert General Appearance: cooperative HEENT head/scalp atraumatic ABG / Lab / Microbiology Data Result Diagrams: 08/25/21 05:23 08/25/21 05:23 Discharge Plan Admission Admit Date/Time: 08/20/21 20:15 Primary Reason for Your Visit: Myxedema Coma Attending Provider: Alexandro Vitale Primary Care Provider: Care Physician,No Primary Consulting Providers: Patel Colmenares ; Loki Sequeira ; Rochelle Romero LEATHER BELT MAKER Discharge Orders/Prescriptions Prescriptions: New polyethylene glycol 3350 17 gram Powder In Packet 17 g PO DAILY 30 Days Qty: 30 RF: 0 levothyroxine 150 mcg Tablet 150 mcg PO DAILY 30 Days Qty: 30 RF: 0 Referrals / Follow Up: Gabino Swanson MD [STAFF PHYSICIAN] - 09/16/21 4:30 pm Care Physician,No Primary [Primary Care Provider] - Disposition Disposition (needs filled in before D/C Order can be placed): Home, Self Care Charges/Coding Visit Charges Inpatient E&M: 34755 Disch Hosp
== END 2021-08-25 14:38 | disposition home or self-care (01) | DRG 80 ==
LOC: ED 19:43 → ICU 20:25 → PCU 08-22 22:48 → ICU 08-24 09:29 → MS3 08-24 19:02
PROVIDERS: Family Medicine; Nurse Practitioner Family; Admitting Provider Internal Medicine; Emergency Provider Emergency Medicine
DX: E03.5 Myxedema coma (principal); G93.41 Metabolic encephalopathy; I31.3 Pericardial effusion (noninflammatory); M62.82 Rhabdomyolysis; K59.09 Other constipation; Z98.51 Tubal ligation status
CPT/HCPCS: 36415; 36600; 70450; 70551; 71045; 74019; 80048; 80053; 80061; 82533; 82550; 82803; 82962; 83605; 83735; 84100; 84439; 84443; 84481; 84703; 85025; 85610; 85730; 93005; 93306; 97802; 99251; 99285; 99406; J7030; A4216; G0463

== ENCOUNTER → 2021-09-16 15:49 | Outpatient (CLI) | payer SELFPAY ==
[2021-09-16 17:06] LABS: CPK Total, Creatine Kinase 182 U/L (26-192); T4 Free Direct 1.55 ng/dL (0.76-1.46); Thyroid Stim Hormone (TSH) 3.88 uIU/mL (0.358-3.74)
== END ==
LOC: BIMLAB 15:50
PROVIDERS: Referring Provider Internal Medicine Endocrinology, Diabetes & Metabolism; Visit Provider Internal Medicine Endocrinology, Diabetes & Metabolism
DX: E03.8 Other specified hypothyroidism (principal); E06.3 Autoimmune thyroiditis
CPT/HCPCS: 36415; 82533; 82550; 84439; 84443

== ENCOUNTER → 2022-07-25 | Outpatient (CLI) | payer MEDICAID, SELFPAY ==
[2022-07-25 15:42] LABS: Absolute Lymphocyte Count 1.64 X10^3/uL (0.83-4.51); Absolute Neutrophil Count 8.4 X10^3/uL (2.0-7.7); Basophil% 0.9 % (0-1); Eosinophil# 0.57 X10^3/uL; Eosinophils% 4.9 % (0-5); Hematocrit 37.4 % (37-47); Hemoglobin 10.9 g/dL (12.0-15.0); Lymphocyte # 1.64 X10^3/ul (0.83-4.51); Mean Corp Hgb Conc 29.1 g/dL (32-36); Mean Corpuscular Hgb 20.7 pg (27.0-32.0); Mean Platelet Vol. 9.7 fl (6.2-12.0); Monocyte# 0.96 X10^3/uL; Monocyte% 8.2 % (0-10); NRBC Flagged by Analyzer 0 % (0-5); Neutrophil # 8.35 X10^3/uL (2.7-7.7); Neutrophil % 71.4 % (47-70); Platelet Count 295 K/mm3 (150-450); RBC Distribution Width SD 49.2 fl (35.1-43.9); Red Blood Count 5.27 M/mm3 (4.2-5.4); White Blood Count 11.7 K/mm3 (4.4-11.0)
[2022-07-25 16:21] LABS: ALB/GLOB Ratio 0.8 RATIO (0.9-2.4); AST(SGOT) 23 U/L (15-37); Alanine Aminotransfer ALT/SGPT 30 U/L (13-56); Albumin, Serum 3.5 g/dL (3.2-5.0); Alkaline Phosphatase 107 U/L (45-117); Anion Gap 8 (5-15); BUN 17 mg/dL (7-18); CPK Total, Creatine Kinase 77 U/L (26-192); Calcium,Total 9.1 mg/dL (8.5-10.1); Chloride 102 mmol/L (98-107); Creatinine, Serum 0.71 mg/dL (0.55-1.02); EST Glomerular Filtration Rate 96 mL/min (>60); Est Glom Filt Rate - Afr Amer 117 mL/min (>60); Ferritin 5 ng/mL (8-252); Globulin 4.4 g/dL (2.2-4.2); Glucose 90 mg/dL (74-106); Potassium 4.1 mmol/L (3.5-5.1); Protein, Total 7.9 g/dL (6.4-8.2); Sodium Level 136 mmol/L (136-145); T4 Free Direct 1.27 ng/dL (0.76-1.46); Thyroid Stim Hormone (TSH) 5.56 uIU/mL (0.358-3.74)
== END | disposition home or self-care (01) ==
LOC: LAB 14:11
PROVIDERS: Referring Provider Internal Medicine Endocrinology, Diabetes & Metabolism; Visit Provider Internal Medicine Endocrinology, Diabetes & Metabolism
DX: M79.10 Myalgia, unspecified site (principal); E03.8 Other specified hypothyroidism; E06.3 Autoimmune thyroiditis; D64.9 Anemia, unspecified
CPT/HCPCS: 36415; 80053; 82533; 82550; 82728; 84439; 84443; 85025